=== PATIENT | female | born 1980 | race Caucasian/White ===

== ENCOUNTER 2022-06-24 08:34 | Emergency (ER) | payer OTHER ==
[2022-06-24] MEDS ORDERED: TORAdol 30 mg Injection IM ONE (08:51)
[2022-06-24] MEDS ORDERED: TORAdol 30 mg Injection ONE (09:01)
--- NOTE | 2022-06-24 09:02 | ERPHSYRPT ---
- History of Present Illness Time Seen by Provider: 06/24/22 08:37 Source: patient Exam Limitations: no limitations Patient Subjective Stated Complaint: left shoulder pain since 1pm yesterday Physician History: This's a 41 yr old known diabetic type 2 in Insulin, presenting to ED with left shoulder pain that started yesterday around 1 pm when pt. was shopping. - Reports left shoulder pain initially noticed on monday after lifting a 100lb box that improved. - Laft shoulder pain- 10/10, increases with lifting arm, decreases to 0/10 with not moving the arm, non radiating, has some associated tingling, no numbness. -non radiating - denies prior surgeries to arm/injuries. - denies chest pain/SOB/fever - LMP- on control, lst menstrual period unknown. - has taken iburprofen and applied ice hot with some relief. Occurred: yesterday Method of Injury: other (lefted a 100 lb box) Quality: intermittent Severity of Pain-Max: severe Extremities Pain Location: shoulder: left, arm: left Modifying Factors: Improves With: movement, pain medication, rest Associated Symptoms: none Allergies/Adverse Reactions: phenobarbital Allergy (Verified 06/24/22 08:46) Home Medications: Ammonium Lactate [Ammonium Lactate 12%] 226 gm TP DAILY 06/24/22 [History] Ertugliflozin Pidolate [Steglatro] 5 mg PO DAILY 06/24/22 [History] Gabapentin [Neurontin ] 300 mg PO TID 06/24/22 [History] Insulin Lispro [Admelog Solostar] 7 units ACHS 06/24/22 [History] Lisinopril 20 mg [Zestril 20 MG] 20 mg PO DAILY 06/24/22 [History] PANTOPRAZOLE 40 mg Tablet [Protonix 40MG Tablet] 40 mg PO DAILY 06/24/22 [History] Pen Needle, Diabetic [Bd Ultra-Fine Pen Needle] 1 ea DAILY 06/24/22 [History] Semaglutide [Ozempic] 0.25 mg SQ UD 06/24/22 [History] terbinafine HCL [Terbinafine HCl] 250 mg PO DAILY 06/24/22 [History] - Review of Systems Constitutional: No Symptoms, No Fever, No Chills, No Fatigue, No Malaise, No Weight Loss Eyes: No Discharge, No Eye Pain, No Vision Changes, No Double Vision Ears, Nose, & Throat: No Ear Pain, No Ear Discharge, No Hearing Changes, No Nose Congestion, No Nose Discharge, No Epistaxis, No Painful Swallowing Respiratory: No Cough, No Dyspnea on Exertion (ESPINO) Cardiac: No Chest Pain, No Palpitations, No Syncope, No Orthopnea, No PND Abdominal/Gastrointestinal: No Abdominal Pain, No Nausea, No Vomiting, No Diarrhea, No Appetite Changes Genitourinary Symptoms: No Dysuria, No Frequency, No Hematuria, No Hesitancy Musculoskeletal: Joint Pain, No Fall Skin: No No Symptoms, No Cellulitis, No Decubiti, No Rash Neurological: No Dizziness, No Focal Weakness, No Gait Changes, No Headache, No Irritability, No Lethargy, No Parasthesia, No Seizure Psychological: No No Symptoms Endocrine: No No Symptoms Immunological/Allergic: No No Symptoms All Other Systems: Reviewed and Negative - Past Medical History Pertinent Past Medical History: Yes Endocrine Medical History: Diabetes Type II - Past Surgical History Past Surgical History: Yes Gastrointestinal: Cholecystectomy, Hernia Repair Female Surgical History: Section - Social History Drug Use: none - Female History Hx Now: No - Nursing Vital Signs Nursing Vital Signs: Initial Vital Signs Pulse Rate 72 06/24/22 09:07 Respiratory Rate 16 06/24/22 09:07 Blood Pressure 170/88 06/24/22 09:07 O2 Sat by Pulse Oximetry 98 06/24/22 09:07 Pain Scale Pain Intensity 5 - Physical Exam General Appearance: no apparent distress, obese Eyes, Ears, Nose, Throat Exam: normal ENT inspection, TMs normal, pharynx normal Neck Exam: normal inspection, non-tender, supple, full range of motion, No carotid bruit, No JVD Cardiovascular/Respiratory Exam: chest non-tender, normal breath sounds, regular rate/rhythm, heart sounds normal, normal peripheral pulses, No crepitus Abdominal Exam: non-tender, soft, no organomegaly Back Exam: normal inspection, normal range of motion, No CVA tenderness Shoulder Exam: normal inspection, no evidence of injury, bone tenderness, limited ROM, pain, No deformity, No ecchymosis, No swelling Elbow/Forearm Exam: normal inspection, non-tender, no evidence of injury, normal ROM Wrist Exam: normal inspection, non-tender, no evidence of injury, normal ROM, soft tissue tenderness Hand Exam: normal inspection, non-tender, no evidence of injury, normal ROM DTR - Upper Extremity Exam: bicep (R): 4+, bicep (L): 4+, tricep (R): 4+, tricep (L): 4+ Neuro/Tendon Exam: normal sensation, normal motor functions, no evidence tendon injury, No sensory deficit Mental Status Exam: alert, oriented x 3, cooperative Skin Exam: normal color, warm, dry, No rash SpO2 Interpretation: normal O2 Delivery: Room Air - Course EKG Interpreted by Me: RATE, Sinus Rhythm, NORMAL AXIS, NORMAL INTERVALS, NORMAL QRS, NORMAL ST-T Rhythm Strip: Rate, Normal Sinus Rhythm Ordered Tests: Active Orders 24 hr Category Date Time Status Cold Application STAT Care 06/24/22 08:51 Active HUMERUS Stat Exams 06/24/22 08:51 Completed SHOULDER Stat Exams 06/24/22 08:51 Completed CK-Creatinine Phosphokinase Stat Lab 06/24/22 09:28 Completed TROPONIN Q4H Lab 06/24/22 09:28 Completed TROPONIN Q4H Lab 06/24/22 13:00 Ordered TROPONIN Q4H Lab 06/24/22 17:00 Ordered TROPONIN Q4H Lab 06/24/22 21:00 Ordered Medication Summary Discontinued Medications Generic Name Dose Route Start Last Admin Trade Name Freq PRN Reason Stop Dose Admin Etomidate 20 mg 06/24/22 10:50 06/24/22 10:55 Etomidate 20 Mg/10 Ml Amp IV 06/24/22 10:51 Not Given ONCE ONE Ketorolac Tromethamine 30 mg 06/24/22 08:51 06/24/22 09:02 Ketorolac Tromethamine 30 Mg/Ml Inj IM 06/24/22 08:52 30 mg STAT ONE Administration Ketorolac Tromethamine Confirm 06/24/22 09:01 Ketorolac Tromethamine 30 Mg/Ml Inj Administered 06/24/22 09:02 Dose 30 mg .ROUTE .STK-MED ONE Lab/Rad Data: Laboratory Results 06/24/22 Range/Units 09:28 Creatine Kinase 154 H (30-135) U/L Troponin I < 0.012 (0.000-0.034) ng/mL - Progress Progress: improved Progress Note: 06/24/22 09:07 Outside notes reviewed: Clinic notes02/16/21- holter monitor done for hernia surgery shows sinus rhythm with a 2hr episode of A.fibb Independent historians interviewed: Patient Lab tests ordered and reviewed by me for medical decision making. See results in this note. Tests ordered and independently interpreted by me X-rays - .Is independently reviewed by me and agreeing with radiology over read shows left humeral head subluxation inferiorly and no prior x-rays for comparison ED course: Initially EKG was obtained, labs ordered along with imaging, ice pack applied to affected area parenteral drugs given: 30mg IM Toradol Comorbid conditions increasing risks:DM type 2 on insulin, obesity DDX considered but not restriced to fracture of long bone, tendonitis, bursitis, ACS Final Diagnosis: left Shoulder subluxation 06/24/22 10:53 Risks of Complications, morbidity, and mortality is: Moderate due to: Need for minor surgery with risk factors Treatment limited by social determinants Low due to:low literacy rate Healthy patient with limited co-morbidities. Disposition: Troponin- WNl, no EKG changes, CPK mildly elevated. ruled out ACS, fracture, dislocation .Attempted to do conscious sedation in order to reduce the left shoulder subluxation . it is unknown if this is acute or chronic orders were placed for etomidate and discussed conscious sedation with the patient including risks benefits and complications -patient reported that there is no one to drive her back home hence decision was made to abandon the procedure -patient will be placed in an arm sling and advised close follow-up with [facility] for further management of the subluxation -patient was advised to apply ice packs for at least 10 to 15 minutes 3 times a day alternate Tylenol with Motrin as needed for pain can try topical rubs and close follow-up with [facility] -patient had no further questions 06/24/22 11:01 - Departure Departure Disposition: Home Clinical Impression: Shoulder subluxation, left Condition: Stable Critical Care Time: No Referrals: JUAN MANUEL CHINO MD [Primary Care Provider] - Follow up/PCP as directed Additional Instructions: Discharge/Care Plan NIRAV TRUJILLO was seen on 06/24/22 in the Emergency Room. The patient was counseled regarding Diagnosis,Lab results, Imaging studies, need for follow up and when to return to the Emergency Room. Prescriptions given:none Discharge Note I have spoken with the patient and/or caregivers. I have explained the patient's condition, diagnosis and treatment plan based on the information available to me at this time. I have answered the patient's and/or caregiver's questions and addressed any concerns. The patient and/or caregivers have as good understanding of the patient's diagnosis, condition and treatment plan as can be expected at this point. The vital signs have been stable. The patient's condition is stable and appropriate for discharge from the emergency department. The patient will pursue further outpatient evaluation with the primary care physician or other designated or consulting physician as outlined in the discharge instructions. The patient and/or caregivers are agreeable to this plan of care and follow-up instructions have been explained in detail. The patient and/or caregivers have received these instruction. The patient/and or caregivers are aware that any significant change in condition or worsening of symptoms should prompt an immediate return to this or the closest emergency department or call 911.
--- NOTE | 2022-06-24 09:26 | XRAY ---
Indication: Pain. No known injury. Comparison: None 2 view left humerus demonstrates humeral head subluxation inferiorly. No other bony, articular, or soft tissue abnormalities.
--- NOTE | 2022-06-24 09:26 | XRAY ---
Indication: Pain. No known injury. Comparison: None 3 view left shoulder demonstrates humeral head subluxation inferiorly. No other bony, articular, or soft tissue abnormalities.
[2022-06-24 09:54] LABS: CK-Creatinine Phosphokinase 154 U/L (30-135); TROPONIN < 0.012 ng/mL (0.000-0.034)
[2022-06-24] MEDS ORDERED: Amidate 20 MG/10 ML IV ONE (10:50)
[2022-06-24 10:57] VITALS: BP 134/71; PULSE 84; O2SAT 93
== END 2022-06-24 11:54 | disposition home or self-care (01) ==
LOC: ED 08:34
DX: S43.032A Inferior subluxation of left humerus, initial encounter (principal); X50.0XXA Overexertion from strenuous movement or load, initial encounter; M25.512 Pain in left shoulder; E11.9 Type 2 diabetes mellitus without complications; Z79.4 Long term (current) use of insulin; Z79.85 Long-term (current) use of injectable non-insulin antidiabetic drugs; Z79.899 Other long term (current) drug therapy
CPT/HCPCS: 36415; 73030; 73060; 82550; 84484; 96372; 99284; J1885

== ENCOUNTER 2023-06-15 09:56 | Observation (INO) | payer OTHER ==
[2023-06-15] MEDS ORDERED: Sodium Chloride 0.9% 1000 ML 1,000 ML ONE (10:43)
[2023-06-15] MEDS: Sodium Chloride 0.9% 1000 ML 1,000 ML IV STA (10:45)
[2023-06-15] MEDS: CARDIZEM DRIP 100 MG/100 ML D5W 100 ML IV PRN (10:47)
[2023-06-15] MEDS: Cardizem IV 50 MG/10 ML IV ONE (10:47)
[2023-06-15 11:11] LABS: Absolute Neutrophil Ct (ANC) 5.79 x10^3/uL (1.4-6.9); BASOPHIL % 0.4 % (0.0-0.4); Basophil (Absolute #) 0.03 x10^3/uL (0-0.4); Eosinophil % 0.7 % (0.00-5.0); Eosinophil (Absolute #) 0.06 x10^3/uL (0-0.5); Hematocrit 51.3 % (35-47); Hemoglobin 15.9 g/dL (12.0-16.0); IMMATURE GRAN # 0.02 x10^3u/L (0.00-0.03); IMMATURE GRAN % 0.2 % (0.00-0.4); Lymphocyte (Absolute #) 1.45 x10^3/uL (1.0-4.6); Lymphocytes % 18.1 % (24.0-44.0); Mean Cell Volume 90.5 fL (78-100); Mean Platelet Volume 11.3 fL (7.5-11.0); Monocyte (Absolute #) 0.67 x10^3/uL (0.0-1.3); Monocytes % 8.4 % (0.0-12.0); Neutrophil % 72.2 % (36.0-66.0); Platelet Count 294 x10^3/uL (150-450); Red Blood Count 5.67 x10^6/uL (4.1-5.4); Red Cell Distribution Width 15.2 % (11.5-14.0)
[2023-06-15 11:24] LABS: HCG SERUM TEST NEGATIVE (NEGATIVE)
[2023-06-15 11:42] LABS: Appearance Cloudy (Clear); Bacteria Few /HPF (None Seen); Bilirubin Negative (Negative); Blood Small (Negative); Epithelial Cells Few /HPF (None Seen); Glucose, Urine 500 mg/dL (Negative); Hyaline Casts NONE SEEN /LPF (0-2); Ketones Trace (Negative); Leukocyte Esterase Small (Negative); Nitrite Negative (Negative); Protein,Urine Dip 100 (Negative); RBC 0-2 /HPF (0-5); Specific Gravity <=1.005 (1.005-1.030); Urobilinogen 0.2 mg/dL (0.2)
[2023-06-15 11:43] LABS: ALBUMIN 4.7 g/dL (3.5-5.0); BILIRUBIN,TOTAL 0.5 mg/dL (0.2-1.3); Calcium 9.1 mg/dL (8.4-10.2); Creatinine 1 0.54 mg/dL (0.52-1.04); EST GLOMERULAR FILTRATION RATE 118.6 ML/MIN; PROCALCITONIN 0.053 ng/mL (0.030-0.080); Potassium 3.5 mmol/L (3.5-5.1); Total Protein 8.9 g/dL (6.3-8.2)
[2023-06-15 11:43] LABS: Budding Yeast Moderate /HPF (None Seen); Hyphae Yeast Few /HPF (None Seen)
[2023-06-15 11:44] LABS: ADD URINE CULTURE? YES (NO)
[2023-06-15 11:49] LABS: INFLUENZA B NEGATIVE (NEGATIVE); RESPIRATORY SYNCTIAL VIRUS NEGATIVE (NEGATIVE); SARS-CoV-2 Xpert Express NEGATIVE (NEGATIVE)
--- NOTE | 2023-06-15 11:49 | XRAY ---
Indication: Short of breath. Comparison: None Portable chest demonstrates cardiomegaly, central vascular congestion, mild pulmonary edema, and tiny bibasilar effusions favoring cardiac decompensation/CHF. Superimposed pneumonia not completely excluded. Bony thorax intact.
[2023-06-15 11:51] LABS: INFLUENZA A POSITIVE (NEGATIVE)
[2023-06-15] MEDS ORDERED: Tamiflu 75MG Capsule PO ONE (12:09)
[2023-06-15] MEDS ORDERED: ROCEPHIN 2 Gm-D5w 50ML BAG** 2 G/50 ML IVPB IV ONE (12:09)
--- NOTE | 2023-06-15 12:09 | ERPHSYRPT ---
- History of Present Illness Time Seen by Provider: 06/15/23 10:30 Source: patient Exam Limitations: no limitations Patient Subjective Stated Complaint: C/O SOB that Started on Monday. Patient states she went to [facility] on that day and was prescribed an albuterol inh aler, told she was negative for flu and COVID and then sent home. Patient went back to work last night and is increasingly SOB today. States children at home have influenza A. Triage Nursing Assessment: Patient ambulated back to ER; refused W/C. She is SOB with exertion. She is anxious and tearful. Face is flushed. Lungs clear with diminished lower lobes. Dry, non-productive cough present. RUSSELL LUU. Physician History: 42-year-old morbidly obese female with history of hypertension, diabetes mellitus, anxiety/depression presented in the ER with 4 days history of cough congestion, body aches. Patient was seen outpatient few days ago with a neg ative flu and COVID although patient has a positive contact with influenza A. Patient reports progressively increasing minimal productive cough and shortness of breath initially with activity and now feeling short of breath even resting. Patient reports pressure all over in the chest, body aches, mild headache. Patient found presentation has a heart rate in 130s and 140s with EKG showing A- fib RVR. Patient has no history of atrial fibrillation and is not anticoagulated. Allergies/Adverse Reactions: phenobarbital Allergy (Verified 06/15/23 09:57) Home Medications: Albuterol Sulfate Mdi [ALBUTEROL/Proair Hfa MDI] 2 puff PO Q4-6HPRN PRN 06/15/23 [History] Cholecalciferol (Vitamin D3) [Vitamin D3] 1 cap PO 2XW 06/15/23 [History] Ferrous Sulfate 325 mg [Feosol 325 mg] 1 tab PO BID 06/15/23 [History] Gabapentin [Neurontin ] 1 cap PO TID 06/15/23 [History] Insulin Glargine [Lantus Insulin] See Rx Instructions .ROUTE .COMPLEX 06/15/23 [History] Liraglutide [Victoza 2-Dajuan] 1.2 mg SQ DAILY 06/15/23 [History] Norethindrone Acetate 1 tab PO DAILY 06/15/23 [History] Pioglitazone HCl [Actos] 1 tab PO DAILY 06/15/23 [History] lisinopriL [Zestril] 1 tab PO DAILY 06/15/23 [History] Hx Tetanus, Diphtheria Vaccination/Date Given: Yes Hx Influenza Vaccination/Date Given: No Hx Pneumococcal Vaccination/Date Given: No Immunizations Up to Date: Yes Travel Risk - International Travel Have you traveled outside of the country in past 3 weeks: No - Coronavirus Screening Are you exhibiting any of the following symptoms?: Yes Symptoms: Fever, Cough: New Onset, Shortness of Breath Close contact with a COVID-19 positive Pt in past 14-21 Days: No - Vaccine Status Have you recieved a Covid-19 vaccination: No - Review of Systems Constitutional: Fatigue, Weakness Eyes: No Symptoms Ears, Nose, & Throat: No Symptoms Respiratory: Cough, Dyspnea, Dyspnea on Exertion (ESPINO) Cardiac: Chest Pain, Edema Abdominal/Gastrointestinal: No Symptoms Genitourinary Symptoms: No Symptoms Musculoskeletal: Myalgias Skin: No Symptoms Neurological: Headache Psychological: No Symptoms Hematologic/Lymphatic: No Symptoms Immunological/Allergic: No Symptoms - Past Medical History Pertinent Past Medical History: Yes Endocrine Medical History: Diabetes Type II GI Medical History: Gallbladder Disease, Hernia - Past Surgical History Past Surgical History: Yes Gastrointestinal: Cholecystectomy, Hernia Repair Female Surgical History: Section - Social History Smoking Status: Never smoker Exposure to second hand smoke: No Drug Use: none Patient Lives Alone: No - Female History Hx Last Menstrual Period: Irregular; April 2023 Hx Now: (unk) - Nursing Vital Signs Nursing Vital Signs: Initial Vital Signs Blood Pressure 180/125 06/15/23 09:56 O2 Sat by Pulse Oximetry 97 06/15/23 09:56 Pain Scale Pain Intensity 0 - Physical Exam General Appearance: no apparent distress Eye Exam: PERRL/EOMI Ears, Nose, Throat Exam: hearing grossly normal Neck Exam: normal inspection, non-tender, supple, full range of motion Respiratory Exam: diminished breath sounds, crackles/rales Abdominal/Gastrointestinal Exam: soft, normal bowel sounds, No tenderness Extremity Exam: non-tender, normal range of motion Neurologic Exam: alert, oriented x 3, cooperative, play therapist II-XII nml as tested Skin Exam: normal color SpO2 Interpretation: normal SpO2: 92 O2 Delivery: Room Air - Course EKG Interpreted by Me: RATE (131), A-fib, NORMAL AXIS, NORMAL INTERVALS, Q-wave, Non-specific ST Changes Ordered Tests: Active Orders 24 hr Category Date Time Status Engineering Test Mechanic STAT Care 06/15/23 10:31 Active EKG-ER Only STAT Care 06/15/23 10:31 Active IV Insertion STAT Care 06/15/23 10:31 Active CHEST 1 VIEW (PORTABLE) Stat Exams 06/15/23 10:31 Completed CHEST WITH CONTRAST [CT] Stat Exams 06/15/23 11:40 Completed BLOOD CULTURE Stat Lab 06/15/23 10:32 Received CBC W DIFF Stat Lab 06/15/23 10:52 Completed CK-Creatinine Phosphokinase Stat Lab 06/15/23 10:52 Completed CMP Stat Lab 06/15/23 10:52 Completed CULTURE,URINE Stat Lab 06/15/23 10:32 Received D-DIMER QUANTITATIVE Stat Lab 06/15/23 10:52 Completed HCG QUALITATIVE, SERUM Stat Lab 06/15/23 10:52 Completed Lactic Acid Stat Lab 06/15/23 10:32 Completed MAGNESIUM Stat Lab 06/15/23 10:52 Completed NT PRO BNPII Stat Lab 06/15/23 10:52 Completed PROCALCITONIN Stat Lab 06/15/23 10:52 Completed TROPONIN Q4H Lab 06/15/23 10:52 Completed TROPONIN Q4H Lab 06/15/23 14:45 Ordered TROPONIN Q4H Lab 06/15/23 18:45 Ordered UA W/RFX UR CULTURE Stat Lab 06/15/23 10:32 Completed Transfer Order Routine Transfer 06/15/23 Ordered Medication Summary Generic Name Dose Route Start Last Admin Trade Name Freq PRN Reason Stop Dose Admin Diltiazem HCl 100 mls @ 5 mls/hr 06/15/23 10:32 06/15/23 11:46 Cardizem Drip 100 Mg/100 Ml D5w IV 07/15/23 10:31 7.5 mg/hr .Q20H PRN 7.5 mls/hr HEART RATE/ A-FIB Titration Protocol 5 MG/HR Discontinued Medications Generic Name Dose Route Start Last Admin Trade Name Freq PRN Reason Stop Dose Admin Diltiazem HCl 10 mg 06/15/23 10:32 06/15/23 10:47 Diltiazem Hcl Iv 5 Mg/Ml Vial IV 06/15/23 10:33 10 mg STAT ONE Administration Sodium Chloride 1,000 mls @ 999 mls/hr 06/15/23 10:31 06/15/23 11:47 Sodium Chloride 0.9% 1000 Ml IV 06/15/23 11:31 Infused .Q1H1M STA Infusion Sodium Chloride Confirm 06/15/23 10:43 Sodium Chloride 0.9% 1000 Ml Administered 06/15/23 10:44 Dose 1,000 mls @ ud .ROUTE .STK-MED ONE Ceftriaxone Sodium/Dextrose 2 g in 50 mls @ 100 mls/hr 06/15/23 12:02 06/15/23 12:47 Rocephin 2 Gm-D5w 50ml Bag IV 06/15/23 12:31 Infused STAT STA Infusion Ceftriaxone Sodium/Dextrose Confirm 06/15/23 12:09 Rocephin 2 Gm-D5w 50ml Bag Administered 06/15/23 12:10 Dose 2 g in 50 mls @ ud IV .STK-MED ONE Ondansetron HCl 4 mg 06/15/23 13:19 06/15/23 13:21 Ondansetron Hcl 4 Mg/2 Ml Vial IV 06/15/23 13:20 4 mg STAT ONE Administration Ondansetron HCl Confirm 06/15/23 13:21 Ondansetron Hcl 4 Mg/2 Ml Vial Administered 06/15/23 13:22 Dose 4 mg .ROUTE .STK-MED ONE Oseltamivir Phosphate 75 mg 06/15/23 12:03 06/15/23 12:13 Oseltamivir 75 Mg Cap PO 06/15/23 12:04 75 mg STAT ONE Administration Oseltamivir Phosphate Confirm 06/15/23 12:09 Oseltamivir 75 Mg Cap Administered 06/15/23 12:10 Dose 75 mg PO .STK-MED ONE Lab/Rad Data: Laboratory Result Diagrams 06/15/23 10:52 06/15/23 10:52 Laboratory Results 06/15/23 06/15/23 06/15/23 Range/Units 10:52 10:52 10:52 WBC (4.0-10.5) x10^3/uL RBC (4.1-5.4) x10^6/uL Hgb (12.0-16.0) g/dL Hct (35-47) % MCV (78-100) fL MCH (26-32) pg MCHC (32-36) g/dL RDW (11.5-14.0) % Plt Count (150-450) x10^3/uL MPV (7.5-11.0) fL Gran % (36.0-66.0) % Immature Gran % (Auto) (0.00-0.4) % Nucleat RBC Rel Count (0.00-0.1) % Eos # (Auto) (0-0.5) x10^3/uL Immature Gran # (Auto) (0.00-0.03) x10^3u/L Absolute Lymphs (auto) (1.0-4.6) x10^3/uL Absolute Monos (auto) (0.0-1.3) x10^3/uL Absolute Nucleated RBC (0.00-0.01) x10^3u/L Lymphocytes % (24.0-44.0) % Monocytes % (0.0-12.0) % Eosinophils % (0.00-5.0) % Basophils % (0.0-0.4) % Absolute Granulocytes (1.4-6.9) x10^3/uL Basophils # (0-0.4) x10^3/uL D-Dimer (0.0-0.50) mg/L Sodium (135-145) mmol/L Potassium (3.5-5.1) mmol/L Chloride (98-107) mmol/L Carbon Dioxide (22-30) mmol/L Anion Gap (5-15) MEQ/L BUN (7-17) mg/dL Creatinine (0.52-1.04) mg/dL Estimated GFR ML/MIN Glucose (74-106) mg/dL Lactic Acid (0.4-2.0) Calcium (8.4-10.2) mg/dL Magnesium (1.6-2.3) mg/dL Total Bilirubin (0.2-1.3) mg/dL AST (14-36) U/L ALT (0-35) U/L Alkaline Phosphatase (38-126) U/L Creatine Kinase (30-135) U/L Troponin I < 0.012 (0.000-0.034) ng/mL NT-Pro-B Natriuret Pep (<300) pg/mL Serum Total Protein (6.3-8.2) g/dL Albumin (3.5-5.0) g/dL Procalcitonin (0.030-0.080) ng/mL Serum HCG, Qual NEGATIVE (NEGATIVE) Urine Color (Yellow) Urine Appearance (Clear) Urine pH (4.6-8.0) Ur Specific [place] (1.005-1.030) Urine Protein (Negative) Urine Glucose (UA) (Negative) mg/dL Urine Ketones (Negative) Urine Blood (Negative) Urine Nitrite (Negative) Urine Bilirubin (Negative) Urine Urobilinogen (0.2) mg/dL Ur Leukocyte Esterase (Negative) U Hyaline Cast (Auto) (0-2) /LPF Urine Microscopic RBC (0-5) /HPF Urine Microscopic WBC (0-5) /HPF Ur Epithelial Cells (None Seen) /HPF Urine Bacteria (None Seen) /HPF Ur Yeast w Hyphae (None Seen) /HPF Urine Yeast (Budding) (None Seen) /HPF Urine Culture Reflexed (NO) Influenza Type A Ag POSITIVE A (NEGATIVE) Influenza Type B Ag NEGATIVE (NEGATIVE) RSV (PCR) NEGATIVE (NEGATIVE) SARS-CoV-2 (PCR) NEGATIVE (NEGATIVE) 06/15/23 06/15/23 06/15/23 Range/Units 10:52 10:52 10:52 WBC 8.0 (4.0-10.5) x10^3/uL RBC 5.67 H (4.1-5.4) x10^6/uL Hgb 15.9 (12.0-16.0) g/dL Hct 51.3 H (35-47) % MCV 90.5 (78-100) fL MCH 28.0 (26-32) pg MCHC 31.0 L (32-36) g/dL RDW 15.2 H (11.5-14.0) % Plt Count 294 (150-450) x10^3/uL MPV 11.3 H (7.5-11.0) fL Gran % 72.2 H (36.0-66.0) % Immature Gran % (Auto) 0.2 (0.00-0.4) % Nucleat RBC Rel Count 0.0 (0.00-0.1) % Eos # (Auto) 0.06 (0-0.5) x10^3/uL Immature Gran # (Auto) 0.02 (0.00-0.03) x10^3u/L Absolute Lymphs (auto) 1.45 (1.0-4.6) x10^3/uL Absolute Monos (auto) 0.67 (0.0-1.3) x10^3/uL Absolute Nucleated RBC 0.00 (0.00-0.01) x10^3u/L Lymphocytes % 18.1 L (24.0-44.0) % Monocytes % 8.4 (0.0-12.0) % Eosinophils % 0.7 (0.00-5.0) % Basophils % 0.4 (0.0-0.4) % Absolute Granulocytes 5.79 (1.4-6.9) x10^3/uL Basophils # 0.03 (0-0.4) x10^3/uL D-Dimer 0.84 H* (0.0-0.50) mg/L Sodium 144 (135-145) mmol/L Potassium 3.5 (3.5-5.1) mmol/L Chloride 107 (98-107) mmol/L Carbon Dioxide 24 (22-30) mmol/L Anion Gap 17.0 H (5-15) MEQ/L BUN 12 (7-17) mg/dL Creatinine 0.54 (0.52-1.04) mg/dL Estimated GFR 118.6 ML/MIN Glucose 87 (74-106) mg/dL Lactic Acid (0.4-2.0) Calcium 9.1 (8.4-10.2) mg/dL Magnesium 2.0 (1.6-2.3) mg/dL Total Bilirubin 0.50 (0.2-1.3) mg/dL AST 29 (14-36) U/L ALT 21 (0-35) U/L Alkaline Phosphatase 91 (38-126) U/L Creatine Kinase 234 H (30-135) U/L Troponin I (0.000-0.034) ng/mL NT-Pro-B Natriuret Pep 24.0 (<300) pg/mL Serum Total Protein 8.9 H (6.3-8.2) g/dL Albumin 4.7 (3.5-5.0) g/dL Procalcitonin 0.053 (0.030-0.080) ng/mL Serum HCG, Qual (NEGATIVE) Urine Color (Yellow) Urine Appearance (Clear) Urine pH (4.6-8.0) Ur Specific [place] (1.005-1.030) Urine Protein (Negative) Urine Glucose (UA) (Negative) mg/dL Urine Ketones (Negative) Urine Blood (Negative) Urine Nitrite (Negative) Urine Bilirubin (Negative) Urine Urobilinogen (0.2) mg/dL Ur Leukocyte Esterase (Negative) U Hyaline Cast (Auto) (0-2) /LPF Urine Microscopic RBC (0-5) /HPF Urine Microscopic WBC (0-5) /HPF Ur Epithelial Cells (None Seen) /HPF Urine Bacteria (None Seen) /HPF Ur Yeast w Hyphae (None Seen) /HPF Urine Yeast (Budding) (None Seen) /HPF Urine Culture Reflexed (NO) Influenza Type A Ag (NEGATIVE) Influenza Type B Ag (NEGATIVE) RSV (PCR) (NEGATIVE) SARS-CoV-2 (PCR) (NEGATIVE) 06/15/23 06/15/23 Range/Units 10:32 10:32 WBC (4.0-10.5) x10^3/uL RBC (4.1-5.4) x10^6/uL Hgb (12.0-16.0) g/dL Hct (35-47) % MCV (78-100) fL MCH (26-32) pg MCHC (32-36) g/dL RDW (11.5-14.0) % Plt Count (150-450) x10^3/uL MPV (7.5-11.0) fL Gran % (36.0-66.0) % Immature Gran % (Auto) (0.00-0.4) % Nucleat RBC Rel Count (0.00-0.1) % Eos # (Auto) (0-0.5) x10^3/uL Immature Gran # (Auto) (0.00-0.03) x10^3u/L Absolute Lymphs (auto) (1.0-4.6) x10^3/uL Absolute Monos (auto) (0.0-1.3) x10^3/uL Absolute Nucleated RBC (0.00-0.01) x10^3u/L Lymphocytes % (24.0-44.0) % Monocytes % (0.0-12.0) % Eosinophils % (0.00-5.0) % Basophils % (0.0-0.4) % Absolute Granulocytes (1.4-6.9) x10^3/uL Basophils # (0-0.4) x10^3/uL D-Dimer (0.0-0.50) mg/L Sodium (135-145) mmol/L Potassium (3.5-5.1) mmol/L Chloride (98-107) mmol/L Carbon Dioxide (22-30) mmol/L Anion Gap (5-15) MEQ/L BUN (7-17) mg/dL Creatinine (0.52-1.04) mg/dL Estimated GFR ML/MIN Glucose (74-106) mg/dL Lactic Acid 1.6 (0.4-2.0) Calcium (8.4-10.2) mg/dL Magnesium (1.6-2.3) mg/dL Total Bilirubin (0.2-1.3) mg/dL AST (14-36) U/L ALT (0-35) U/L Alkaline Phosphatase (38-126) U/L Creatine Kinase (30-135) U/L Troponin I (0.000-0.034) ng/mL NT-Pro-B Natriuret Pep (<300) pg/mL Serum Total Protein (6.3-8.2) g/dL Albumin (3.5-5.0) g/dL Procalcitonin (0.030-0.080) ng/mL Serum HCG, Qual (NEGATIVE) Urine Color Yellow (Yellow) Urine Appearance Cloudy A (Clear) Urine pH 6.0 (4.6-8.0) Ur Specific [place] <=1.005 (1.005-1.030) Urine Protein 100 A (Negative) Urine Glucose (UA) 500 A (Negative) mg/dL Urine Ketones Trace A (Negative) Urine Blood Small A (Negative) Urine Nitrite Negative (Negative) Urine Bilirubin Negative (Negative) Urine Urobilinogen 0.2 (0.2) mg/dL Ur Leukocyte Esterase Small A (Negative) U Hyaline Cast (Auto) NONE SEEN (0-2) /LPF Urine Microscopic RBC 0-2 (0-5) /HPF Urine Microscopic WBC 11-20 A (0-5) /HPF Ur Epithelial Cells Few (None Seen) /HPF Urine Bacteria Few A (None Seen) /HPF Ur Yeast w Hyphae Few A (None Seen) /HPF Urine Yeast (Budding) Moderate A (None Seen) /HPF Urine Culture Reflexed YES (NO) Influenza Type A Ag (NEGATIVE) Influenza Type B Ag (NEGATIVE) RSV (PCR) (NEGATIVE) SARS-CoV-2 (PCR) (NEGATIVE) - Progress Progress: re-examined Air Movement: fair Progress Note: 06/15/23 13:44 42-year-old is evaluated for gradually worsening cough and difficulty breathing and a positive exposure to influenza. Patient is tachycardic with new onset A- fib RVR. She is started on Cardizem bolus followed by drip and currently heart rate in 110s. Chest x-ray showed congestion/cardiomegaly with CHF picture, patient BNP is normal. Clinically she does not seems to be in CHF. Moderate extremity of infectious etiology, given small bolus of fluid. Workup showed normal white count, chemistries fairly unremarkable with negative troponins. D-dimers are elevated and CTA is negative for PE or focal consolidation. Normal procalcitonin. Patient does have positive influenza A and started on Tamiflu. Patient urinalysis is consistent with UTI and given a dose of Rocephin. Discussed with Dr. Issa hospitalist on-call, reviewed history, workup and agreed with admission, will leave it up to the hospitalist about starting of anticoagulation. I have reviewed the results of workup with patient and plan of admission which she understands and agrees. Blood Culture(s) Obtained: Yes Antibiotics given: Yes Discussed with : Other Will see patient in: hospital (observation) Counseled pt/family regarding: lab results, diagnosis, rad results Medical Desision Making - Discussion of managment Care discussed with:: hospitalist () Reviewed:: Test results Agreed on:: Treatment plan Will see patient: in hospital - Diagnostic Testing Diagnostic test were ordered, analyzed, and reviewed by me: Yes Radiological Interpretation: Reviewed by me - Risk of complications The pt has a high risk of morbidity or mortality based on: Decision regarding hospitilization or escalation of hosp level of care - Departure Departure Disposition: Observation Clinical Impression: Atrial fibrillation with rapid ventricular response, Acute UTI, Influenza A Condition: Stable Critical Care Time: No Referrals: JUAN MANUEL CHINO MD [Primary Care Provider] - Follow up/PCP as directed
[2023-06-15] MEDS: ROCEPHIN 2 Gm-D5w 50ML BAG** 2 G/50 ML IVPB IV STA (12:11)
[2023-06-15] MEDS: Tamiflu 75MG Capsule PO ONE (12:13)
--- NOTE | 2023-06-15 13:13 | XRAY ---
Indication: Short of breath. Pulmonary embolus. Multiple contiguous axial images obtained through the chest using 80 cc Isovue 370 contrast and PE protocol. Comparison: None Good opacification of the pulmonary arteries to include the lobar and segmental branches. Mild respiration artifact limits evaluation of the more distal lobar and segmental branches. No obvious pulmonary embolus. Heart is enlarged. Aorta is normal in course and caliber. No pathologic mediastinal/hilar lymphadenopathy. Lungs demonstrates minimal scattered patchy airspace disease, left greater than right without effusion. Also lingula and bibasilar subsegmental atelectasis/scarring. Bony thorax intact with minimal degenerative changes throughout the spine. Visualized breasts demonstrates prominent varicosities, right greater than left. Limited upper abdomen demonstrates cholecystectomy. Impression: 1. Respiration artifact limits pulmonary embolus evaluation. No obvious pulmonary embolus. 2. Minimal scattered bilateral patchy airspace disease. 3. Chronic findings including cardiomegaly, atelectasis/scarring, multilevel degenerative, and bilateral breast varicosities.
[2023-06-15] MEDS: Zofran 4 MG/2 ML VIAL IV ONE (13:21)
[2023-06-15] MEDS ORDERED: Zofran 4 MG/2 ML VIAL ONE (13:21)
[2023-06-15] MEDS ORDERED: Zofran 4 MG/2 ML VIAL IV PRN (14:54)
[2023-06-15] MEDS ORDERED: TYLENOL 325 MG PO PRN (14:54)
[2023-06-15] MEDS ORDERED: HUMALOG SQ PRN (14:54)
--- NOTE | 2023-06-15 15:04 | PCM.HP ---
History of Present Illness - Chief Complaint Chief Complaint: sob/AFIB RVR Date: 06/15/23 History of Present Illness: is a 42 year old female Ms. Vanegas is a 42 year old female with a pmhx of HTN, DMII, and morbid obestity who presented to ED 06/15/23 with complaints of progressive shortness of breath, productive cough with green sputum, and body days. Onset of symptoms was approximately four days ago. She was seen outpatient as she has had sick contacts with influenza A., but tested negative at that time. She reports that symptoms got worse last evening where she was having a hard time catching her breath with chest pressure which prompted her to report to the emergency room today. In ED, patient was afebrile, hypertensive, tachypneic, and tachycardic with HR measured at 143. Chest CT demonstrates scattered bilateral patchy airspace disease. Negative for PE. EKG interpreted by ED physician showing RATE (131), A- fib, NORMAL AXIS, NORMAL INTERVALS, Q-wave, Non-specific ST Changes. Lab finding remarkable for elevated Ddimer at 0.84 (CTA negative PE), CK 234. UA with leuks/yeast, Influenza A positive. Patient given rocephin, Tamiflu, fluid bolus, cardizem bolus, and started on cardizem drip. - Review of Systems Constitutional: Weakness Eyes: No Symptoms Ears, Nose, & Throat: Nose Congestion Respiratory: Cough, Short Of Breath Cardiac: No Symptoms Abdominal/Gastrointestinal: Nausea Genitourinary Symptoms: Vaginal Itching Musculoskeletal: No Symptoms Skin: No Symptoms Neurological: No Symptoms Psychological: No Symptoms Endocrine: No Symptoms Hematologic/Lymphatic: No Symptoms Immunological/Allergic: No Symptoms Medications & Allergies Home Medications: Home Medication List Albuterol Sulfate Mdi [ALBUTEROL/Proair Hfa MDI] 2 puff PO Q4HPRN PRN 06/15/23 [History Confirmed 06/15/23] Ammonium Lactate [Ammonium Lactate 12%] 1 gm TP BID 06/15/23 [History Confirmed 06/15/23] Benzonatate 200 mg PO TIDPRN PRN 06/15/23 [History Confirmed 06/15/23] Cholecalciferol (Vitamin D3) [Vitamin D3] 50 mcg PO UD 06/15/23 [History Confi rmed 06/15/23] Ferrous Sulfate 325 mg [Feosol 325 mg] 325 mg PO BID 06/15/23 [History Confirmed 06/15/23] Gabapentin [Neurontin ] 300 mg PO TID 06/15/23 [History Confirmed 06/15/23] Insulin Glargine [Lantus Insulin] 70 units SQ HS 06/15/23 [History Confirmed 06/15/23] Insulin Lispro [Humalog] 0 unit SQ UD 06/15/23 [History Confirmed 06/15/23] Liraglutide [Victoza 2-Dajuan] 1.2 mg SQ DAILY 06/15/23 [History Confirmed 06/15/23] Norethindrone Acetate 5 mg PO DAILY 06/15/23 [History Confirmed 06/15/23] PANTOPRAZOLE 40 mg Tablet [Protonix 40MG Tablet] 40 mg PO DAILY 06/15/23 [History Confirmed 06/15/23] Pioglitazone HCl [Actos] 45 mg PO DAILY 06/15/23 [History Confirmed 06/15/23] lisinopriL [Zestril] 2.5 mg PO DAILY 06/15/23 [History Confirmed 06/15/23] Allergies/Adverse Reactions: Allergies Allergy/AdvReac Type Severity Reaction Status Date / Time phenobarbital Allergy Verified 06/15/23 09:57 - Past Medical History Past Medical History: Yes Endocrine Medical History: Diabetes Type II GI Medical History: Gallbladder Disease, Hernia - Female History Hx Last Menstrual Period: Irregular; April 2023 Are you now?: (unk) - Past Surgical History Past Surgical History: Yes GI Surgical History: Cholecystectomy, Hernia Repair Female Surgical History: Section - Social History Smoking Status: Never smoker Exposure to second hand smoke: No Alcohol: None Drug Use: none - Physical Exam Vital Signs: Vital Signs - 24 hr Temp Pulse Resp BP BP Pulse Ox 06/15/23 14:00 95 H 26 H 127/87 06/15/23 13:59 99 H 29 H 123/81 06/15/23 13:58 99 H 33 H 90 L 06/15/23 13:47 92 L 06/15/23 13:47 98 H 26 H 127/87 06/15/23 13:30 127/82 06/15/23 13:16 100 H 28 H 143/102 91 L 06/15/23 13:00 135 H 26 H 121/97 94 L 06/15/23 12:59 133 H 28 H 134/109 95 06/15/23 12:58 145 H 93 L 06/15/23 12:47 97 H 20 143/102 06/15/23 12:30 132/79 06/15/23 12:16 122 H 119/96 06/15/23 12:00 122 H 27 H 123/91 93 L 06/15/23 11:45 131 H 36 H 126/93 93 L 06/15/23 11:44 114 H 38 H 92 L 06/15/23 11:40 124 H 38 H 92 L 06/15/23 11:34 130 H 39 H 91 L 06/15/23 11:15 149/93 06/15/23 11:00 132 H 36 H 139/97 91 L 06/15/23 10:47 135 H 36 H 149/88 06/15/23 10:46 110 H 38 H 149/88 93 L 06/15/23 10:31 152 H 42 H 156/119 93 L 06/15/23 10:00 134 H 43 H 170/117 06/15/23 09:59 98.4 F 73 26 H 180/125 97 06/15/23 09:56 180/125 97 General Appearance: no apparent distress Neurologic Exam: alert, oriented x 3, cooperative Eye Exam: PERRL/EOMI Ears, Nose, Throat Exam: normal ENT inspection Neck Exam: normal inspection Respiratory Exam: diminished breath sounds Cardiovascular Exam: regular rate/rhythm, normal heart sounds Gastrointestinal/Abdomen Exam: soft, normal bowel sounds Pelvic Exam: not done Rectal Exam: deferred Back Exam: normal inspection Extremity Exam: normal inspection Skin Exam: normal color Results - Labs Lab/Micro Results: Lab Results-Last 24 Hours 06/15/23 06/15/23 06/15/23 Range/Units 10:32 10:32 10:52 WBC 8.0 (4.0-10.5) x10^3/uL RBC 5.67 H (4.1-5.4) x10^6/uL Hgb 15.9 (12.0-16.0) g/dL Hct 51.3 H (35-47) % MCV 90.5 (78-100) fL MCH 28.0 (26-32) pg MCHC 31.0 L (32-36) g/dL RDW 15.2 H (11.5-14.0) % Plt Count 294 (150-450) x10^3/uL MPV 11.3 H (7.5-11.0) fL Gran % 72.2 H (36.0-66.0) % Immature Gran % (Auto) 0.2 (0.00-0.4) % Nucleat RBC Rel Count 0.0 (0.00-0.1) % Eos # (Auto) 0.06 (0-0.5) x10^3/uL Immature Gran # (Auto) 0.02 (0.00-0.03) x10^3u/L Absolute Lymphs (auto) 1.45 (1.0-4.6) x10^3/uL Absolute Monos (auto) 0.67 (0.0-1.3) x10^3/uL Absolute Nucleated RBC 0.00 (0.00-0.01) x10^3u/L Lymphocytes % 18.1 L (24.0-44.0) % Monocytes % 8.4 (0.0-12.0) % Eosinophils % 0.7 (0.00-5.0) % Basophils % 0.4 (0.0-0.4) % Absolute Granulocytes 5.79 (1.4-6.9) x10^3/uL Basophils # 0.03 (0-0.4) x10^3/uL D-Dimer (0.0-0.50) mg/L Sodium (135-145) mmol/L Potassium (3.5-5.1) mmol/L Chloride (98-107) mmol/L Carbon Dioxide (22-30) mmol/L Anion Gap (5-15) MEQ/L BUN (7-17) mg/dL Creatinine (0.52-1.04) mg/dL Estimated GFR ML/MIN Glucose (74-106) mg/dL Lactic Acid 1.6 (0.4-2.0) Calcium (8.4-10.2) mg/dL Magnesium (1.6-2.3) mg/dL Total Bilirubin (0.2-1.3) mg/dL AST (14-36) U/L ALT (0-35) U/L Alkaline Phosphatase (38-126) U/L Creatine Kinase (30-135) U/L Troponin I (0.000-0.034) ng/mL NT-Pro-B Natriuret Pep (<300) pg/mL Serum Total Protein (6.3-8.2) g/dL Albumin (3.5-5.0) g/dL Procalcitonin (0.030-0.080) ng/mL Serum HCG, Qual (NEGATIVE) Urine Color Yellow (Yellow) Urine Appearance Cloudy A (Clear) Urine pH 6.0 (4.6-8.0) Ur Specific [place] <=1.005 (1.005-1.030) Urine Protein 100 A (Negative) Urine Glucose (UA) 500 A (Negative) mg/dL Urine Ketones Trace A (Negative) Urine Blood Small A (Negative) Urine Nitrite Negative (Negative) Urine Bilirubin Negative (Negative) Urine Urobilinogen 0.2 (0.2) mg/dL Ur Leukocyte Esterase Small A (Negative) U Hyaline Cast (Auto) NONE SEEN (0-2) /LPF Urine Microscopic RBC 0-2 (0-5) /HPF Urine Microscopic WBC 11-20 A (0-5) /HPF Ur Epithelial Cells Few (None Seen) /HPF Urine Bacteria Few A (None Seen) /HPF Ur Yeast w Hyphae Few A (None Seen) /HPF Urine Yeast (Budding) Moderate A (None Seen) /HPF Urine Culture Reflexed YES (NO) Influenza Type A Ag (NEGATIVE) Influenza Type B Ag (NEGATIVE) RSV (PCR) (NEGATIVE) SARS-CoV-2 (PCR) (NEGATIVE) 06/15/23 06/15/23 06/15/23 Range/Units 10:52 10:52 10:52 WBC (4.0-10.5) x10^3/uL RBC (4.1-5.4) x10^6/uL Hgb (12.0-16.0) g/dL Hct (35-47) % MCV (78-100) fL MCH (26-32) pg MCHC (32-36) g/dL RDW (11.5-14.0) % Plt Count (150-450) x10^3/uL MPV (7.5-11.0) fL Gran % (36.0-66.0) % Immature Gran % (Auto) (0.00-0.4) % Nucleat RBC Rel Count (0.00-0.1) % Eos # (Auto) (0-0.5) x10^3/uL Immature Gran # (Auto) (0.00-0.03) x10^3u/L Absolute Lymphs (auto) (1.0-4.6) x10^3/uL Absolute Monos (auto) (0.0-1.3) x10^3/uL Absolute Nucleated RBC (0.00-0.01) x10^3u/L Lymphocytes % (24.0-44.0) % Monocytes % (0.0-12.0) % Eosinophils % (0.00-5.0) % Basophils % (0.0-0.4) % Absolute Granulocytes (1.4-6.9) x10^3/uL Basophils # (0-0.4) x10^3/uL D-Dimer 0.84 H* (0.0-0.50) mg/L Sodium 144 (135-145) mmol/L Potassium 3.5 (3.5-5.1) mmol/L Chloride 107 (98-107) mmol/L Carbon Dioxide 24 (22-30) mmol/L Anion Gap 17.0 H (5-15) MEQ/L BUN 12 (7-17) mg/dL Creatinine 0.54 (0.52-1.04) mg/dL Estimated GFR 118.6 ML/MIN Glucose 87 (74-106) mg/dL Lactic Acid (0.4-2.0) Calcium 9.1 (8.4-10.2) mg/dL Magnesium 2.0 (1.6-2.3) mg/dL Total Bilirubin 0.50 (0.2-1.3) mg/dL AST 29 (14-36) U/L ALT 21 (0-35) U/L Alkaline Phosphatase 91 (38-126) U/L Creatine Kinase 234 H (30-135) U/L Troponin I < 0.012 (0.000-0.034) ng/mL NT-Pro-B Natriuret Pep 24.0 (<300) pg/mL Serum Total Protein 8.9 H (6.3-8.2) g/dL Albumin 4.7 (3.5-5.0) g/dL Procalcitonin 0.053 (0.030-0.080) ng/mL Serum HCG, Qual (NEGATIVE) Urine Color (Yellow) Urine Appearance (Clear) Urine pH (4.6-8.0) Ur Specific [place] (1.005-1.030) Urine Protein (Negative) Urine Glucose (UA) (Negative) mg/dL Urine Ketones (Negative) Urine Blood (Negative) Urine Nitrite (Negative) Urine Bilirubin (Negative) Urine Urobilinogen (0.2) mg/dL Ur Leukocyte Esterase (Negative) U Hyaline Cast (Auto) (0-2) /LPF Urine Microscopic RBC (0-5) /HPF Urine Microscopic WBC (0-5) /HPF Ur Epithelial Cells (None Seen) /HPF Urine Bacteria (None Seen) /HPF Ur Yeast w Hyphae (None Seen) /HPF Urine Yeast (Budding) (None Seen) /HPF Urine Culture Reflexed (NO) Influenza Type A Ag (NEGATIVE) Influenza Type B Ag (NEGATIVE) RSV (PCR) (NEGATIVE) SARS-CoV-2 (PCR) (NEGATIVE) 06/15/23 06/15/23 Range/Units 10:52 10:52 WBC (4.0-10.5) x10^3/uL RBC (4.1-5.4) x10^6/uL Hgb (12.0-16.0) g/dL Hct (35-47) % MCV (78-100) fL MCH (26-32) pg MCHC (32-36) g/dL RDW (11.5-14.0) % Plt Count (150-450) x10^3/uL MPV (7.5-11.0) fL Gran % (36.0-66.0) % Immature Gran % (Auto) (0.00-0.4) % Nucleat RBC Rel Count (0.00-0.1) % Eos # (Auto) (0-0.5) x10^3/uL Immature Gran # (Auto) (0.00-0.03) x10^3u/L Absolute Lymphs (auto) (1.0-4.6) x10^3/uL Absolute Monos (auto) (0.0-1.3) x10^3/uL Absolute Nucleated RBC (0.00-0.01) x10^3u/L Lymphocytes % (24.0-44.0) % Monocytes % (0.0-12.0) % Eosinophils % (0.00-5.0) % Basophils % (0.0-0.4) % Absolute Granulocytes (1.4-6.9) x10^3/uL Basophils # (0-0.4) x10^3/uL D-Dimer (0.0-0.50) mg/L Sodium (135-145) mmol/L Potassium (3.5-5.1) mmol/L Chloride (98-107) mmol/L Carbon Dioxide (22-30) mmol/L Anion Gap (5-15) MEQ/L BUN (7-17) mg/dL Creatinine (0.52-1.04) mg/dL Estimated GFR ML/MIN Glucose (74-106) mg/dL Lactic Acid (0.4-2.0) Calcium (8.4-10.2) mg/dL Magnesium (1.6-2.3) mg/dL Total Bilirubin (0.2-1.3) mg/dL AST (14-36) U/L ALT (0-35) U/L Alkaline Phosphatase (38-126) U/L Creatine Kinase (30-135) U/L Troponin I (0.000-0.034) ng/mL NT-Pro-B Natriuret Pep (<300) pg/mL Serum Total Protein (6.3-8.2) g/dL Albumin (3.5-5.0) g/dL Procalcitonin (0.030-0.080) ng/mL Serum HCG, Qual NEGATIVE (NEGATIVE) Urine Color (Yellow) Urine Appearance (Clear) Urine pH (4.6-8.0) Ur Specific [place] (1.005-1.030) Urine Protein (Negative) Urine Glucose (UA) (Negative) mg/dL Urine Ketones (Negative) Urine Blood (Negative) Urine Nitrite (Negative) Urine Bilirubin (Negative) Urine Urobilinogen (0.2) mg/dL Ur Leukocyte Esterase (Negative) U Hyaline Cast (Auto) (0-2) /LPF Urine Microscopic RBC (0-5) /HPF Urine Microscopic WBC (0-5) /HPF Ur Epithelial Cells (None Seen) /HPF Urine Bacteria (None Seen) /HPF Ur Yeast w Hyphae (None Seen) /HPF Urine Yeast (Budding) (None Seen) /HPF Urine Culture Reflexed (NO) Influenza Type A Ag POSITIVE A (NEGATIVE) Influenza Type B Ag NEGATIVE (NEGATIVE) RSV (PCR) NEGATIVE (NEGATIVE) SARS-CoV-2 (PCR) NEGATIVE (NEGATIVE) - Radiology Impressions Radiology Exams & Impressions: Radiology Procedures Category Date Time Status CHEST 1 VIEW (PORTABLE) Stat Exams 06/15/23 10:31 Completed CHEST WITH CONTRAST [CT] Stat Exams 06/15/23 11:40 Completed ECHO W/2D AND DOPPLER [US] Routine Exams 06/15/23 14:54 Ordered - Other Procedures and Tests Respiratory Therapy 06/15/23 14:51 Oxygen Nasal Cannula 2 lpm Respiratory Therapy Consult ONCE 06/15/23 14:54 EKG REPEAT IN AM Assessment/Plan (1) Atrial fibrillation with rapid ventricular response Current Visit: Yes Status: Acute Assessment & Plan: -Dimer elevated, CT negative for PE, with chronic findings cardiomegaly - new onset, not anticoagulated -consult cardiology, appreciate recs-Monitor on Telemetry-Cardizem drip started in ED, will continue per protocol, rate now controlled, NS at 94 -Metoprolol 12.5 started -rate control to target goal HR <85 bpm at rest if symptomatic, goal HR <110 bpm if asymptomatic -ECHO pending -Once HR maintained begin PO/taper drip and discontinue two hours after second oral [id number]: 3-optimize electrolytes for goal of K at 4 and magnesium at 2 -TSH Code(s): I48.91 - UNSPECIFIED ATRIAL FIBRILLATION (2) Acute UTI Current Visit: Yes Status: Acute Assessment & Plan: -mildly suspicious for UTI, will start empiric abx and follow culture, yeast also observed, will give diflucan Code(s): N39.0 - URINARY TRACT INFECTION, SITE NOT SPECIFIED (3) Influenza A Current Visit: Yes Status: Acute Assessment & Plan: -CT chest with no obvious PE, bilateral patchy airspace disease -Supportive care with supplemental oxygen as needed to maintain spo2 >92%, anti- pyretics, anti-emetics -Tamiflu initiated in ED, will continue Code(s): J10.1 - FLU DUE TO OTH IDENT INFLUENZA VIRUS W OTH RESP MANIFEST (4) Diabetes mellitus Current Visit: Yes Status: Acute Assessment & Plan: -A1c -SSI/Lantus -ADA diet Code(s): E11.9 - TYPE 2 DIABETES MELLITUS WITHOUT COMPLICATIONS (5) HTN (hypertension) Current Visit: Yes Status: Acute Assessment & Plan: -Stable, continue home medication Code(s): I10 - ESSENTIAL (PRIMARY) HYPERTENSION
[2023-06-15] MEDS: ROCEPHIN 1 GM / 100 ML NaCl 1 GM/100 ML IVPB IV SCH (15:18)
[2023-06-15] MEDS: Lopressor 25MG Tab PO SCH ×2 (15:43→22:50)
[2023-06-15] MEDS: ENOXAPARIN SODIUM SQ SCH (15:43)
[2023-06-15 15:48] LABS: MAGNESIUM 2.1 mg/dL (1.6-2.3); TSH, 3RD Generation 0.728 mIU/L (0.47-4.68)
[2023-06-15] MEDS ORDERED: VENTOLIN COMMON CANISTER IH PRN (16:11)
[2023-06-15] MEDS: Tamiflu 75MG Capsule PO SCH (22:50)
[2023-06-16 04:54] LABS: Hematocrit 47.8 % (35-47); Hemoglobin 14.6 g/dL (12.0-16.0); Mean Cell Volume 91.7 fL (78-100); Mean Corpuscular Hgb Concent. 30.5 g/dL (32-36); Mean Platelet Volume 10.9 fL (7.5-11.0); Platelet Count 254 x10^3/uL (150-450); Red Blood Count 5.21 x10^6/uL (4.1-5.4); Red Cell Distribution Width 15.4 % (11.5-14.0); White Blood Count 4.1 x10^3/uL (4.0-10.5)
[2023-06-16 05:19] LABS: ALBUMIN 4.1 g/dL (3.5-5.0); ANION GAP 13.6 MEQ/L (5-15); BILIRUBIN,TOTAL 0.5 mg/dL (0.2-1.3); Calcium 8.5 mg/dL (8.4-10.2); Creatinine 1 0.5 mg/dL (0.52-1.04); EST GLOMERULAR FILTRATION RATE 120.8 ML/MIN; Potassium 4.1 mmol/L (3.5-5.1); Total Protein 7.7 g/dL (6.3-8.2)
--- NOTE | 2023-06-16 05:59 | PCM.NOTE ---
Date and Time: 06/16/23 0555 Subjective Assessment: is a 42 year old female Ms. Vanegas is a 42 year old female with a pmhx of HTN, DMII, and morbid obestity who presented to ED 06/15/23 with complaints of progressive shortness of breath, productive cough with green sputum, and body days. Onset of symptoms was approximately four days ago. She was seen outpatient as she has had sick contacts with influenza A., but tested negative at that time. She reports that symptoms got worse last evening where she was having a hard time catching her breath with chest pressure which prompted her to report to the emergency room today. In ED, patient was afebrile, hypertensive, tachypneic, and tachycardic with HR measured at 143. Chest CT demonstrates scattered bilateral patchy airspace disease. Negative for PE. EKG interpreted by ED physician showing RATE (131), A-fib, NORMAL AXIS, NORMAL INTERVALS, Q-wave, Non-specific ST Changes. Lab finding remarkable for elevated Ddimer at 0.84 (CTA negative PE), CK 234. UA with leuks/yeast, Influenza A positive. Patient given rocephin, Tamiflu, fluid bolus, cardizem bolus, and started on cardizem drip. She is admitted with influenza/pneumonia/AFIB RVR/UTI. Current IP treatment with rocephin/azith/tamiflu/metoprolol. Cards consulted with recs for metoprolol 12.5mg BID, lisinopril 2.5mg daily, and xarelto 20mg daily. They will follow with her in 1-2 weeks s/d d/c. Objective Data Vital Signs: Vital Signs - 24 hr Temp Pulse Resp BP BP Pulse Ox 06/16/23 04:00 98.0 F 74 20 103/64 97 06/16/23 03:05 74 24 108/60 97 06/16/23 02:00 80 21 101/71 95 06/16/23 00:40 73 06/16/23 00:00 98.6 F 73 17 101/60 91 L 06/15/23 22:00 98.0 F 75 19 95/61 95 06/15/23 20:41 76 18 94 L 06/15/23 20:29 81 06/15/23 20:00 98.8 F 81 19 128/82 93 L 06/15/23 18:53 78 20 93 L 06/15/23 18:00 81 23 131/82 92 L 06/15/23 17:00 91 H 20 118/73 06/15/23 16:30 92 H 22 130/84 96 06/15/23 16:11 94 L 06/15/23 16:08 90 28 H 94 L 06/15/23 16:00 98.9 F 87 27 H 114/89 93 L 06/15/23 15:45 92 H 23 125/84 93 L 06/15/23 15:44 90 28 H 125/84 06/15/23 15:33 93 H 26 H 118/76 06/15/23 15:07 92 H 26 H 118/76 91 L 06/15/23 15:00 96 H 25 H 118/76 90 L 06/15/23 14:30 93 H 21 120/75 94 L 06/15/23 14:15 96 H 10 L 136/86 90 L 06/15/23 14:00 95 H 26 H 127/87 06/15/23 13:59 99 H 29 H 123/81 06/15/23 13:58 99 H 33 H 90 L 06/15/23 13:47 92 L 06/15/23 13:47 98 H 26 H 127/87 06/15/23 13:30 127/82 06/15/23 13:16 100 H 28 H 143/102 91 L 06/15/23 13:00 135 H 26 H 121/97 94 L 06/15/23 12:59 133 H 28 H 134/109 95 06/15/23 12:58 145 H 93 L 06/15/23 12:47 97 H 20 143/102 06/15/23 12:30 132/79 06/15/23 12:16 122 H 119/96 06/15/23 12:00 122 H 27 H 123/91 93 L 06/15/23 11:45 131 H 36 H 126/93 93 L 06/15/23 11:44 114 H 38 H 92 L 06/15/23 11:40 124 H 38 H 92 L 06/15/23 11:34 130 H 39 H 91 L 06/15/23 11:15 149/93 06/15/23 11:00 132 H 36 H 139/97 91 L 06/15/23 10:47 135 H 36 H 149/88 06/15/23 10:46 110 H 38 H 149/88 93 L 06/15/23 10:31 152 H 42 H 156/119 93 L 06/15/23 10:00 134 H 43 H 170/117 06/15/23 09:59 98.4 F 73 26 H 180/125 97 06/15/23 09:56 180/125 97 Pain Assessment - Last Documented Pain Intensity 0 Intake and Output: Intake & Output 06/13/23 06/14/23 06/15/23 06/16/23 11:59 11:59 11:59 11:59 Intake Total 600 Output Total 400 Balance 200 Weight 155.582 kg 151.7 kg Lab Results: Lab Results-Last 24 Hours 06/15/23 06/15/23 06/15/23 Range/Units 10:32 10:32 10:52 WBC 8.0 (4.0-10.5) x10^3/uL RBC 5.67 H (4.1-5.4) x10^6/uL Hgb 15.9 (12.0-16.0) g/dL Hct 51.3 H (35-47) % MCV 90.5 (78-100) fL MCH 28.0 (26-32) pg MCHC 31.0 L (32-36) g/dL RDW 15.2 H (11.5-14.0) % Plt Count 294 (150-450) x10^3/uL MPV 11.3 H (7.5-11.0) fL Gran % 72.2 H (36.0-66.0) % Immature Gran % (Auto) 0.2 (0.00-0.4) % Nucleat RBC Rel Count 0.0 (0.00-0.1) % Eos # (Auto) 0.06 (0-0.5) x10^3/uL Immature Gran # (Auto) 0.02 (0.00-0.03) x10^3u/L Absolute Lymphs (auto) 1.45 (1.0-4.6) x10^3/uL Absolute Monos (auto) 0.67 (0.0-1.3) x10^3/uL Absolute Nucleated RBC 0.00 (0.00-0.01) x10^3u/L Lymphocytes % 18.1 L (24.0-44.0) % Monocytes % 8.4 (0.0-12.0) % Eosinophils % 0.7 (0.00-5.0) % Basophils % 0.4 (0.0-0.4) % Absolute Granulocytes 5.79 (1.4-6.9) x10^3/uL Basophils # 0.03 (0-0.4) x10^3/uL D-Dimer (0.0-0.50) mg/L Sodium (135-145) mmol/L Potassium (3.5-5.1) mmol/L Chloride (98-107) mmol/L Carbon Dioxide (22-30) mmol/L Anion Gap (5-15) MEQ/L BUN (7-17) mg/dL Creatinine (0.52-1.04) mg/dL Estimated GFR ML/MIN Glucose (74-106) mg/dL POC Glucometer (74 to 106) mg/dL Hemoglobin A1c (4.5-6.0) % Lactic Acid 1.6 (0.4-2.0) Calcium (8.4-10.2) mg/dL Magnesium (1.6-2.3) mg/dL Total Bilirubin (0.2-1.3) mg/dL AST (14-36) U/L ALT (0-35) U/L Alkaline Phosphatase (38-126) U/L Creatine Kinase (30-135) U/L Troponin I (0.000-0.034) ng/mL NT-Pro-B Natriuret Pep (<300) pg/mL Serum Total Protein (6.3-8.2) g/dL Albumin (3.5-5.0) g/dL Procalcitonin (0.030-0.080) ng/mL TSH 3rd Generation (0.47-4.68) mIU/L Serum HCG, Qual (NEGATIVE) Urine Color Yellow (Yellow) Urine Appearance Cloudy A (Clear) Urine pH 6.0 (4.6-8.0) Ur Specific [place] <=1.005 (1.005-1.030) Urine Protein 100 A (Negative) Urine Glucose (UA) 500 A (Negative) mg/dL Urine Ketones Trace A (Negative) Urine Blood Small A (Negative) Urine Nitrite Negative (Negative) Urine Bilirubin Negative (Negative) Urine Urobilinogen 0.2 (0.2) mg/dL Ur Leukocyte Esterase Small A (Negative) U Hyaline Cast (Auto) NONE SEEN (0-2) /LPF Urine Microscopic RBC 0-2 (0-5) /HPF Urine Microscopic WBC 11-20 A (0-5) /HPF Ur Epithelial Cells Few (None Seen) /HPF Urine Bacteria Few A (None Seen) /HPF Ur Yeast w Hyphae Few A (None Seen) /HPF Urine Yeast (Budding) Moderate A (None Seen) /HPF Urine Culture Reflexed YES (NO) Influenza Type A Ag (NEGATIVE) Influenza Type B Ag (NEGATIVE) RSV (PCR) (NEGATIVE) SARS-CoV-2 (PCR) (NEGATIVE) 06/15/23 06/15/23 06/15/23 Range/Units 10:52 10:52 10:52 WBC (4.0-10.5) x10^3/uL RBC (4.1-5.4) x10^6/uL Hgb (12.0-16.0) g/dL Hct (35-47) % MCV (78-100) fL MCH (26-32) pg MCHC (32-36) g/dL RDW (11.5-14.0) % Plt Count (150-450) x10^3/uL MPV (7.5-11.0) fL Gran % (36.0-66.0) % Immature Gran % (Auto) (0.00-0.4) % Nucleat RBC Rel Count (0.00-0.1) % Eos # (Auto) (0-0.5) x10^3/uL Immature Gran # (Auto) (0.00-0.03) x10^3u/L Absolute Lymphs (auto) (1.0-4.6) x10^3/uL Absolute Monos (auto) (0.0-1.3) x10^3/uL Absolute Nucleated RBC (0.00-0.01) x10^3u/L Lymphocytes % (24.0-44.0) % Monocytes % (0.0-12.0) % Eosinophils % (0.00-5.0) % Basophils % (0.0-0.4) % Absolute Granulocytes (1.4-6.9) x10^3/uL Basophils # (0-0.4) x10^3/uL D-Dimer 0.84 H* (0.0-0.50) mg/L Sodium 144 (135-145) mmol/L Potassium 3.5 (3.5-5.1) mmol/L Chloride 107 (98-107) mmol/L Carbon Dioxide 24 (22-30) mmol/L Anion Gap 17.0 H (5-15) MEQ/L BUN 12 (7-17) mg/dL Creatinine 0.54 (0.52-1.04) mg/dL Estimated GFR 118.6 ML/MIN Glucose 87 (74-106) mg/dL POC Glucometer (74 to 106) mg/dL Hemoglobin A1c (4.5-6.0) % Lactic Acid (0.4-2.0) Calcium 9.1 (8.4-10.2) mg/dL Magnesium 2.0 (1.6-2.3) mg/dL Total Bilirubin 0.50 (0.2-1.3) mg/dL AST 29 (14-36) U/L ALT 21 (0-35) U/L Alkaline Phosphatase 91 (38-126) U/L Creatine Kinase 234 H (30-135) U/L Troponin I < 0.012 (0.000-0.034) ng/mL NT-Pro-B Natriuret Pep 24.0 (<300) pg/mL Serum Total Protein 8.9 H (6.3-8.2) g/dL Albumin 4.7 (3.5-5.0) g/dL Procalcitonin 0.053 (0.030-0.080) ng/mL TSH 3rd Generation (0.47-4.68) mIU/L Serum HCG, Qual (NEGATIVE) Urine Color (Yellow) Urine Appearance (Clear) Urine pH (4.6-8.0) Ur Specific [place] (1.005-1.030) Urine Protein (Negative) Urine Glucose (UA) (Negative) mg/dL Urine Ketones (Negative) Urine Blood (Negative) Urine Nitrite (Negative) Urine Bilirubin (Negative) Urine Urobilinogen (0.2) mg/dL Ur Leukocyte Esterase (Negative) U Hyaline Cast (Auto) (0-2) /LPF Urine Microscopic RBC (0-5) /HPF Urine Microscopic WBC (0-5) /HPF Ur Epithelial Cells (None Seen) /HPF Urine Bacteria (None Seen) /HPF Ur Yeast w Hyphae (None Seen) /HPF Urine Yeast (Budding) (None Seen) /HPF Urine Culture Reflexed (NO) Influenza Type A Ag (NEGATIVE) Influenza Type B Ag (NEGATIVE) RSV (PCR) (NEGATIVE) SARS-CoV-2 (PCR) (NEGATIVE) 06/15/23 06/15/23 06/15/23 Range/Units 10:52 10:52 10:52 WBC (4.0-10.5) x10^3/uL RBC (4.1-5.4) x10^6/uL Hgb (12.0-16.0) g/dL Hct (35-47) % MCV (78-100) fL MCH (26-32) pg MCHC (32-36) g/dL RDW (11.5-14.0) % Plt Count (150-450) x10^3/uL MPV (7.5-11.0) fL Gran % (36.0-66.0) % Immature Gran % (Auto) (0.00-0.4) % Nucleat RBC Rel Count (0.00-0.1) % Eos # (Auto) (0-0.5) x10^3/uL Immature Gran # (Auto) (0.00-0.03) x10^3u/L Absolute Lymphs (auto) (1.0-4.6) x10^3/uL Absolute Monos (auto) (0.0-1.3) x10^3/uL Absolute Nucleated RBC (0.00-0.01) x10^3u/L Lymphocytes % (24.0-44.0) % Monocytes % (0.0-12.0) % Eosinophils % (0.00-5.0) % Basophils % (0.0-0.4) % Absolute Granulocytes (1.4-6.9) x10^3/uL Basophils # (0-0.4) x10^3/uL D-Dimer (0.0-0.50) mg/L Sodium (135-145) mmol/L Potassium (3.5-5.1) mmol/L Chloride (98-107) mmol/L Carbon Dioxide (22-30) mmol/L Anion Gap (5-15) MEQ/L BUN (7-17) mg/dL Creatinine (0.52-1.04) mg/dL Estimated GFR ML/MIN Glucose (74-106) mg/dL POC Glucometer (74 to 106) mg/dL Hemoglobin A1c 6.37 H (4.5-6.0) % Lactic Acid (0.4-2.0) Calcium (8.4-10.2) mg/dL Magnesium (1.6-2.3) mg/dL Total Bilirubin (0.2-1.3) mg/dL AST (14-36) U/L ALT (0-35) U/L Alkaline Phosphatase (38-126) U/L Creatine Kinase (30-135) U/L Troponin I (0.000-0.034) ng/mL NT-Pro-B Natriuret Pep (<300) pg/mL Serum Total Protein (6.3-8.2) g/dL Albumin (3.5-5.0) g/dL Procalcitonin (0.030-0.080) ng/mL TSH 3rd Generation (0.47-4.68) mIU/L Serum HCG, Qual NEGATIVE (NEGATIVE) Urine Color (Yellow) Urine Appearance (Clear) Urine pH (4.6-8.0) Ur Specific [place] (1.005-1.030) Urine Protein (Negative) Urine Glucose (UA) (Negative) mg/dL Urine Ketones (Negative) Urine Blood (Negative) Urine Nitrite (Negative) Urine Bilirubin (Negative) Urine Urobilinogen (0.2) mg/dL Ur Leukocyte Esterase (Negative) U Hyaline Cast (Auto) (0-2) /LPF Urine Microscopic RBC (0-5) /HPF Urine Microscopic WBC (0-5) /HPF Ur Epithelial Cells (None Seen) /HPF Urine Bacteria (None Seen) /HPF Ur Yeast w Hyphae (None Seen) /HPF Urine Yeast (Budding) (None Seen) /HPF Urine Culture Reflexed (NO) Influenza Type A Ag POSITIVE A (NEGATIVE) Influenza Type B Ag NEGATIVE (NEGATIVE) RSV (PCR) NEGATIVE (NEGATIVE) SARS-CoV-2 (PCR) NEGATIVE (NEGATIVE) 03/07/24 03/07/24 03/07/24 Range/Units 14:46 14:54 16:47 WBC (4.0-10.5) x10^3/uL RBC (4.1-5.4) x10^6/uL Hgb (12.0-16.0) g/dL Hct (35-47) % MCV (78-100) fL MCH (26-32) pg MCHC (32-36) g/dL RDW (11.5-14.0) % Plt Count (150-450) x10^3/uL MPV (7.5-11.0) fL Gran % (36.0-66.0) % Immature Gran % (Auto) (0.00-0.4) % Nucleat RBC Rel Count (0.00-0.1) % Eos # (Auto) (0-0.5) x10^3/uL Immature Gran # (Auto) (0.00-0.03) x10^3u/L Absolute Lymphs (auto) (1.0-4.6) x10^3/uL Absolute Monos (auto) (0.0-1.3) x10^3/uL Absolute Nucleated RBC (0.00-0.01) x10^3u/L Lymphocytes % (24.0-44.0) % Monocytes % (0.0-12.0) % Eosinophils % (0.00-5.0) % Basophils % (0.0-0.4) % Absolute Granulocytes (1.4-6.9) x10^3/uL Basophils # (0-0.4) x10^3/uL D-Dimer (0.0-0.50) mg/L Sodium (135-145) mmol/L Potassium (3.5-5.1) mmol/L Chloride (98-107) mmol/L Carbon Dioxide (22-30) mmol/L Anion Gap (5-15) MEQ/L BUN (7-17) mg/dL Creatinine (0.52-1.04) mg/dL Estimated GFR ML/MIN Glucose (74-106) mg/dL POC Glucometer 116 H (74 to 106) mg/dL Hemoglobin A1c (4.5-6.0) % Lactic Acid (0.4-2.0) Calcium (8.4-10.2) mg/dL Magnesium 2.1 (1.6-2.3) mg/dL Total Bilirubin (0.2-1.3) mg/dL AST (14-36) U/L ALT (0-35) U/L Alkaline Phosphatase (38-126) U/L Creatine Kinase (30-135) U/L Troponin I < 0.012 (0.000-0.034) ng/mL NT-Pro-B Natriuret Pep (<300) pg/mL Serum Total Protein (6.3-8.2) g/dL Albumin (3.5-5.0) g/dL Procalcitonin (0.030-0.080) ng/mL TSH 3rd Generation 0.728 (0.47-4.68) mIU/L Serum HCG, Qual (NEGATIVE) Urine Color (Yellow) Urine Appearance (Clear) Urine pH (4.6-8.0) Ur Specific [place] (1.005-1.030) Urine Protein (Negative) Urine Glucose (UA) (Negative) mg/dL Urine Ketones (Negative) Urine Blood (Negative) Urine Nitrite (Negative) Urine Bilirubin (Negative) Urine Urobilinogen (0.2) mg/dL Ur Leukocyte Esterase (Negative) U Hyaline Cast (Auto) (0-2) /LPF Urine Microscopic RBC (0-5) /HPF Urine Microscopic WBC (0-5) /HPF Ur Epithelial Cells (None Seen) /HPF Urine Bacteria (None Seen) /HPF Ur Yeast w Hyphae (None Seen) /HPF Urine Yeast (Budding) (None Seen) /HPF Urine Culture Reflexed (NO) Influenza Type A Ag (NEGATIVE) Influenza Type B Ag (NEGATIVE) RSV (PCR) (NEGATIVE) SARS-CoV-2 (PCR) (NEGATIVE) 06/15/23 06/15/23 06/16/23 Range/Units 19:10 22:47 04:40 WBC 4.1 (4.0-10.5) x10^3/uL RBC 5.21 (4.1-5.4) x10^6/uL Hgb 14.6 (12.0-16.0) g/dL Hct 47.8 H (35-47) % MCV 91.7 (78-100) fL MCH 28.0 (26-32) pg MCHC 30.5 L (32-36) g/dL RDW 15.4 H (11.5-14.0) % Plt Count 254 (150-450) x10^3/uL MPV 10.9 (7.5-11.0) fL Gran % (36.0-66.0) % Immature Gran % (Auto) (0.00-0.4) % Nucleat RBC Rel Count (0.00-0.1) % Eos # (Auto) (0-0.5) x10^3/uL Immature Gran # (Auto) (0.00-0.03) x10^3u/L Absolute Lymphs (auto) (1.0-4.6) x10^3/uL Absolute Monos (auto) (0.0-1.3) x10^3/uL Absolute Nucleated RBC (0.00-0.01) x10^3u/L Lymphocytes % (24.0-44.0) % Monocytes % (0.0-12.0) % Eosinophils % (0.00-5.0) % Basophils % (0.0-0.4) % Absolute Granulocytes (1.4-6.9) x10^3/uL Basophils # (0-0.4) x10^3/uL D-Dimer (0.0-0.50) mg/L Sodium (135-145) mmol/L Potassium (3.5-5.1) mmol/L Chloride (98-107) mmol/L Carbon Dioxide (22-30) mmol/L Anion Gap (5-15) MEQ/L BUN (7-17) mg/dL Creatinine (0.52-1.04) mg/dL Estimated GFR ML/MIN Glucose (74-106) mg/dL POC Glucometer 105 (74 to 106) mg/dL Hemoglobin A1c (4.5-6.0) % Lactic Acid (0.4-2.0) Calcium (8.4-10.2) mg/dL Magnesium (1.6-2.3) mg/dL Total Bilirubin (0.2-1.3) mg/dL AST (14-36) U/L ALT (0-35) U/L Alkaline Phosphatase (38-126) U/L Creatine Kinase (30-135) U/L Troponin I < 0.012 (0.000-0.034) ng/mL NT-Pro-B Natriuret Pep (<300) pg/mL Serum Total Protein (6.3-8.2) g/dL Albumin (3.5-5.0) g/dL Procalcitonin (0.030-0.080) ng/mL TSH 3rd Generation (0.47-4.68) mIU/L Serum HCG, Qual (NEGATIVE) Urine Color (Yellow) Urine Appearance (Clear) Urine pH (4.6-8.0) Ur Specific [place] (1.005-1.030) Urine Protein (Negative) Urine Glucose (UA) (Negative) mg/dL Urine Ketones (Negative) Urine Blood (Negative) Urine Nitrite (Negative) Urine Bilirubin (Negative) Urine Urobilinogen (0.2) mg/dL Ur Leukocyte Esterase (Negative) U Hyaline Cast (Auto) (0-2) /LPF Urine Microscopic RBC (0-5) /HPF Urine Microscopic WBC (0-5) /HPF Ur Epithelial Cells (None Seen) /HPF Urine Bacteria (None Seen) /HPF Ur Yeast w Hyphae (None Seen) /HPF Urine Yeast (Budding) (None Seen) /HPF Urine Culture Reflexed (NO) Influenza Type A Ag (NEGATIVE) Influenza Type B Ag (NEGATIVE) RSV (PCR) (NEGATIVE) SARS-CoV-2 (PCR) (NEGATIVE) 06/16/23 Range/Units 04:40 WBC (4.0-10.5) x10^3/uL RBC (4.1-5.4) x10^6/uL Hgb (12.0-16.0) g/dL Hct (35-47) % MCV (78-100) fL MCH (26-32) pg MCHC (32-36) g/dL RDW (11.5-14.0) % Plt Count (150-450) x10^3/uL MPV (7.5-11.0) fL Gran % (36.0-66.0) % Immature Gran % (Auto) (0.00-0.4) % Nucleat RBC Rel Count (0.00-0.1) % Eos # (Auto) (0-0.5) x10^3/uL Immature Gran # (Auto) (0.00-0.03) x10^3u/L Absolute Lymphs (auto) (1.0-4.6) x10^3/uL Absolute Monos (auto) (0.0-1.3) x10^3/uL Absolute Nucleated RBC (0.00-0.01) x10^3u/L Lymphocytes % (24.0-44.0) % Monocytes % (0.0-12.0) % Eosinophils % (0.00-5.0) % Basophils % (0.0-0.4) % Absolute Granulocytes (1.4-6.9) x10^3/uL Basophils # (0-0.4) x10^3/uL D-Dimer (0.0-0.50) mg/L Sodium 140 (135-145) mmol/L Potassium 4.1 (3.5-5.1) mmol/L Chloride 107 (98-107) mmol/L Carbon Dioxide 24 (22-30) mmol/L Anion Gap 13.6 (5-15) MEQ/L BUN 11 (7-17) mg/dL Creatinine 0.50 L (0.52-1.04) mg/dL Estimated GFR 120.8 ML/MIN Glucose 96 (74-106) mg/dL POC Glucometer (74 to 106) mg/dL Hemoglobin A1c (4.5-6.0) % Lactic Acid (0.4-2.0) Calcium 8.5 (8.4-10.2) mg/dL Magnesium (1.6-2.3) mg/dL Total Bilirubin 0.50 (0.2-1.3) mg/dL AST 32 (14-36) U/L ALT 19 (0-35) U/L Alkaline Phosphatase 75 (38-126) U/L Creatine Kinase (30-135) U/L Troponin I (0.000-0.034) ng/mL NT-Pro-B Natriuret Pep (<300) pg/mL Serum Total Protein 7.7 (6.3-8.2) g/dL Albumin 4.1 (3.5-5.0) g/dL Procalcitonin (0.030-0.080) ng/mL TSH 3rd Generation (0.47-4.68) mIU/L Serum HCG, Qual (NEGATIVE) Urine Color (Yellow) Urine Appearance (Clear) Urine pH (4.6-8.0) Ur Specific [place] (1.005-1.030) Urine Protein (Negative) Urine Glucose (UA) (Negative) mg/dL Urine Ketones (Negative) Urine Blood (Negative) Urine Nitrite (Negative) Urine Bilirubin (Negative) Urine Urobilinogen (0.2) mg/dL Ur Leukocyte Esterase (Negative) U Hyaline Cast (Auto) (0-2) /LPF Urine Microscopic RBC (0-5) /HPF Urine Microscopic WBC (0-5) /HPF Ur Epithelial Cells (None Seen) /HPF Urine Bacteria (None Seen) /HPF Ur Yeast w Hyphae (None Seen) /HPF Urine Yeast (Budding) (None Seen) /HPF Urine Culture Reflexed (NO) Influenza Type A Ag (NEGATIVE) Influenza Type B Ag (NEGATIVE) RSV (PCR) (NEGATIVE) SARS-CoV-2 (PCR) (NEGATIVE) Radiology Exams: Radiology Procedures Category Date Time Status CHEST 1 VIEW (PORTABLE) Stat Exams 06/15/23 10:31 Completed CHEST WITH CONTRAST [CT] Stat Exams 06/15/23 11:40 Completed ECHO W/2D AND DOPPLER [US] Routine Exams 06/16/23 14:54 Ordered Assessment/Plan (1) Atrial fibrillation with rapid ventricular response Current Visit: Yes Status: Acute Assessment & Plan: -Dimer elevated, CT negative for PE, with chronic findings cardiomegaly - new onset, not anticoagulated -consult cardiology, appreciate recs-Monitor on Telemetry-Cardizem drip started in ED, will continue per protocol, rate now controlled, NS at 94 -Metoprolol 12.5 started -rate control to target goal HR <85 bpm at rest if symptomatic, goal HR <110 bpm if asymptomatic -ECHO pending -Once HR maintained begin PO/taper drip and discontinue two hours after second oral [id number]: 3-optimize electrolytes for goal of K at 4 and magnesium at 2 -TSH 06/15: -Cards consulted with recs for metoprolol 12.5mg BID, lisinopril 2.5mg daily, and xarelto 20mg daily. They will follow with her in 1-2 weeks s/d d/c. Code(s): I48.91 - UNSPECIFIED ATRIAL FIBRILLATION (2) Acute UTI Current Visit: Yes Status: Acute Assessment & Plan: -mildly suspicious for UTI, will start empiric abx and follow culture, yeast also observed, will give diflucan Code(s): N39.0 - URINARY TRACT INFECTION, SITE NOT SPECIFIED (3) Influenza A Current Visit: Yes Status: Acute Assessment & Plan: -CT chest with no obvious PE, bilateral patchy airspace disease -Supportive care with supplemental oxygen as needed to maintain spo2 >92%, anti- pyretics, anti-emetics -Tamiflu initiated in ED, will continue Code(s): J10.1 - FLU DUE TO OTH IDENT INFLUENZA VIRUS W OTH RESP MANIFEST (4) Diabetes mellitus Current Visit: Yes Status: Acute Assessment & Plan: -A1c -SSI/Lantus -ADA diet Code(s): E11.9 - TYPE 2 DIABETES MELLITUS WITHOUT COMPLICATIONS (5) HTN (hypertension) Current Visit: Yes Status: Acute Assessment & Plan: -Stable, continue home medication Code(s): I10 - ESSENTIAL (PRIMARY) HYPERTENSION Code(s): I48.91 - UNSPECIFIED ATRIAL FIBRILLATION (2) Acute UTI Current Visit: Yes Status: Acute Code(s): N39.0 - URINARY TRACT INFECTION, SITE NOT SPECIFIED (3) Influenza A Current Visit: Yes Status: Acute Code(s): J10.1 - FLU DUE TO OTH IDENT INFLUENZA VIRUS W OTH RESP MANIFEST (4) Diabetes mellitus Current Visit: Yes Status: Acute Code(s): E11.9 - TYPE 2 DIABETES MELLITUS WITHOUT COMPLICATIONS (5) HTN (hypertension) Current Visit: Yes Status: Acute Code(s): I10 - ESSENTIAL (PRIMARY) HYPERTENSION
[2023-06-16 07:23] LABS: ATYPICAL LYMPHS 1 %; Lymphocytes 28 % (24-44); Monocyte 11 % (0.0-12.0); Neutrophils 60 % (36.0-66.0); Total Cells Counted 100
[2023-06-16 07:24] LABS: Platelet Estimate NORMAL (NORMAL)
[2023-06-16] MEDS: Zithromax 500 MG/ 250 ML NaCl Premix 500 MG/250 ML IVPB IV SCH (09:09)
[2023-06-16] MEDS: Zestril 5 MG PO SCH (09:09)
[2023-06-16] MEDS ORDERED: Zestril 10 MG PO SCH (10:00)
--- NOTE | 2023-06-16 11:32 | PCM.DS ---
Discharge Summary Date of Admission: 06/15/23 14:46 Date of Discharge: 06/16/23 Admitting Physician: BART PAUL MD Consults: Consults on Case 06/15/23 14:53 Cardiology Consult [Notify Supervisor Model Making of Admit] ROUTINE Primary Care Provider: JUAN MANUEL CHINO Allergies Allergies phenobarbital Allergy (Verified 06/15/23 09:57) Hospital Summary - Hospital Course Hospital Course: is a 42 year old female Ms. Vanegas is a 42 year old female with a pmhx of HTN, DMII, and morbid obestity who presented to ED 06/15/23 with complaints of progressive shortness of breath, productive cough with green sputum, and body days. Onset of symptoms was approximately four days ago. She was seen outpatient as she has had sick contacts with influenza A., but tested negative at that time. She reports that symptoms got worse last evening where she was having a hard time catching her breath with chest pressure which prompted her to report to the emergency room today. In ED, patient was afebrile, hypertensive, tachypneic, and tachycardic with HR measured at 143. Chest CT demonstrates scattered bilateral patchy airspace disease. Negative for PE. EKG interpreted by ED physician showing RATE (131), A-fib, NORMAL AXIS, NORMAL INTERVALS, Q-wave, Non-specific ST Changes. Lab finding remarkable for elevated Ddimer at 0.84 (CTA negative PE), CK 234. UA with leuks/yeast, Influenza A positive. Patient given rocephin, Tamiflu, fluid bolus, cardizem bolus, and started on cardizem drip. She is admitted with influenza/pneumonia/AFIB RVR/UTI. IP treatment with rocephin/azith/tamiflu/metoprolol. Cards consulted with recs for metoprolol 12.5mg BID, lisinopril 2.5mg daily, and xarelto 20mg daily. HR now controlled. They will follow with her in 1-2 weeks s/d d/c. Urine culture negative. Dyspnea has improved. Patient stable for discharge. Discharge Note New Diagnosis: Pneumonia/influenza/AFIB RVR New Medications: metoprolol/xarelto/tamiflu/cefpodoxime/zpack Follow Up: pcp/cardiology Results pending: blood cult Latest Assessment & Plan (1) Atrial fibrillation with rapid ventricular response Current Visit: Yes Status: Acute Assessment & Plan: -Dimer elevated, CT negative for PE, with chronic findings cardiomegaly - new onset, not anticoagulated -consult cardiology, appreciate recs-Monitor on Telemetry-Cardizem drip started in ED, will continue per protocol, rate now controlled, NS at 94 -Metoprolol 12.5 started -rate control to target goal HR <85 bpm at rest if symptomatic, goal HR <110 bpm if asymptomatic -ECHO pending -Once HR maintained begin PO/taper drip and discontinue two hours after second oral [id number]: 3-optimize electrolytes for goal of K at 4 and magnesium at 2 -TSH 06/15: -Cards consulted with recs for metoprolol 12.5mg BID, lisinopril 2.5mg daily, and xarelto 20mg daily. They will follow with her in 1-2 weeks s/d d/c. Code(s): I48.91 - UNSPECIFIED ATRIAL FIBRILLATION (2) Acute UTI Current Visit: Yes Status: Acute Assessment & Plan: -mildly suspicious for UTI, will start empiric abx and follow culture, yeast also observed, will give diflucan Code(s): N39.0 - URINARY TRACT INFECTION, SITE NOT SPECIFIED (3) Influenza A Current Visit: Yes Status: Acute Assessment & Plan: -CT chest with no obvious PE, bilateral patchy airspace disease -Supportive care with supplemental oxygen as needed to maintain spo2 >92%, anti- pyretics, anti-emetics -Tamiflu initiated in ED, will continue Code(s): J10.1 - FLU DUE TO OTH IDENT INFLUENZA VIRUS W OTH RESP MANIFEST (4) Diabetes mellitus Current Visit: Yes Status: Acute Assessment & Plan: -A1c -SSI/Lantus -ADA diet Code(s): E11.9 - TYPE 2 DIABETES MELLITUS WITHOUT COMPLICATIONS (5) HTN (hypertension) Current Visit: Yes Status: Acute Assessment & Plan: -Stable, continue home medication Code(s): I10 - ESSENTIAL (PRIMARY) HYPERTENSION I spent 35 minutes [id number] with the patient on the day of discharge performing discharge exam, discussing hospital stay and discharge instructions with patient and caregivers, preparation of discharge records, prescriptions & referral forms and addressing any questions/concerns the patient had as documented above. - Vitals & Intake/Output Vital Signs: Vital Signs Temperature 97.9 F 06/16/23 07:21 Pulse Rate 74 06/16/23 08:30 Respiratory Rate 19 06/16/23 08:30 Blood Pressure 130/96 06/16/23 07:21 O2 Sat by Pulse Oximetry 96 06/16/23 08:49 Intake & Output: Intake & Output 06/13/23 06/14/23 06/15/23 06/16/23 11:59 11:59 11:59 11:59 Intake Total 1560 Output Total 725 Balance 835 Weight 155.582 kg 151.7 kg - Lab Result Diagrams: 06/16/23 04:40 06/16/23 04:40 Lab Results-Last 24 Hrs: Lab Results-Last 24 Hours 06/15/23 06/15/23 06/15/23 Range/Units 10:32 10:52 10:52 WBC 8.0 (4.0-10.5) x10^3/uL RBC 5.67 H (4.1-5.4) x10^6/uL Hgb 15.9 (12.0-16.0) g/dL Hct 51.3 H (35-47) % MCV 90.5 (78-100) fL MCH 28.0 (26-32) pg MCHC 31.0 L (32-36) g/dL RDW 15.2 H (11.5-14.0) % Plt Count 294 (150-450) x10^3/uL MPV 11.3 H (7.5-11.0) fL Gran % 72.2 H (36.0-66.0) % Immature Gran % (Auto) 0.2 (0.00-0.4) % Nucleat RBC Rel Count 0.0 (0.00-0.1) % Eos # (Auto) 0.06 (0-0.5) x10^3/uL Immature Gran # (Auto) 0.02 (0.00-0.03) x10^3u/L Absolute Lymphs (auto) 1.45 (1.0-4.6) x10^3/uL Absolute Monos (auto) 0.67 (0.0-1.3) x10^3/uL Absolute Nucleated RBC 0.00 (0.00-0.01) x10^3u/L Lymphocytes % 18.1 L (24.0-44.0) % Monocytes % 8.4 (0.0-12.0) % Eosinophils % 0.7 (0.00-5.0) % Basophils % 0.4 (0.0-0.4) % Absolute Granulocytes 5.79 (1.4-6.9) x10^3/uL Segmented Neutrophils (36.0-66.0) % Lymphocytes (Manual) (24-44) % Monocytes (Manual) (0.0-12.0) % Basophils # 0.03 (0-0.4) x10^3/uL Atypical Lymphocytes % Platelet Estimate (NORMAL) RBC Morphology D-Dimer (0.0-0.50) mg/L Sodium 144 (135-145) mmol/L Potassium 3.5 (3.5-5.1) mmol/L Chloride 107 (98-107) mmol/L Carbon Dioxide 24 (22-30) mmol/L Anion Gap 17.0 H (5-15) MEQ/L BUN 12 (7-17) mg/dL Creatinine 0.54 (0.52-1.04) mg/dL Estimated GFR 118.6 ML/MIN Glucose 87 (74-106) mg/dL POC Glucometer (74 to 106) mg/dL Hemoglobin A1c (4.5-6.0) % Calcium 9.1 (8.4-10.2) mg/dL Magnesium 2.0 (1.6-2.3) mg/dL Total Bilirubin 0.50 (0.2-1.3) mg/dL AST 29 (14-36) U/L ALT 21 (0-35) U/L Alkaline Phosphatase 91 (38-126) U/L Creatine Kinase 234 H (30-135) U/L Troponin I (0.000-0.034) ng/mL NT-Pro-B Natriuret Pep 24.0 (<300) pg/mL Serum Total Protein 8.9 H (6.3-8.2) g/dL Albumin 4.7 (3.5-5.0) g/dL Procalcitonin 0.053 (0.030-0.080) ng/mL TSH 3rd Generation (0.47-4.68) mIU/L Serum HCG, Qual (NEGATIVE) Urine Color Yellow (Yellow) Urine Appearance Cloudy A (Clear) Urine pH 6.0 (4.6-8.0) Ur Specific [place] <=1.005 (1.005-1.030) Urine Protein 100 A (Negative) Urine Glucose (UA) 500 A (Negative) mg/dL Urine Ketones Trace A (Negative) Urine Blood Small A (Negative) Urine Nitrite Negative (Negative) Urine Bilirubin Negative (Negative) Urine Urobilinogen 0.2 (0.2) mg/dL Ur Leukocyte Esterase Small A (Negative) U Hyaline Cast (Auto) NONE SEEN (0-2) /LPF Urine Microscopic RBC 0-2 (0-5) /HPF Urine Microscopic WBC 11-20 A (0-5) /HPF Ur Epithelial Cells Few (None Seen) /HPF Urine Bacteria Few A (None Seen) /HPF Ur Yeast w Hyphae Few A (None Seen) /HPF Urine Yeast (Budding) Moderate A (None Seen) /HPF Urine Culture Reflexed YES (NO) Influenza Type A Ag (NEGATIVE) Influenza Type B Ag (NEGATIVE) RSV (PCR) (NEGATIVE) SARS-CoV-2 (PCR) (NEGATIVE) 06/15/23 06/15/23 06/15/23 Range/Units 10:52 10:52 10:52 WBC (4.0-10.5) x10^3/uL RBC (4.1-5.4) x10^6/uL Hgb (12.0-16.0) g/dL Hct (35-47) % MCV (78-100) fL MCH (26-32) pg MCHC (32-36) g/dL RDW (11.5-14.0) % Plt Count (150-450) x10^3/uL MPV (7.5-11.0) fL Gran % (36.0-66.0) % Immature Gran % (Auto) (0.00-0.4) % Nucleat RBC Rel Count (0.00-0.1) % Eos # (Auto) (0-0.5) x10^3/uL Immature Gran # (Auto) (0.00-0.03) x10^3u/L Absolute Lymphs (auto) (1.0-4.6) x10^3/uL Absolute Monos (auto) (0.0-1.3) x10^3/uL Absolute Nucleated RBC (0.00-0.01) x10^3u/L Lymphocytes % (24.0-44.0) % Monocytes % (0.0-12.0) % Eosinophils % (0.00-5.0) % Basophils % (0.0-0.4) % Absolute Granulocytes (1.4-6.9) x10^3/uL Segmented Neutrophils (36.0-66.0) % Lymphocytes (Manual) (24-44) % Monocytes (Manual) (0.0-12.0) % Basophils # (0-0.4) x10^3/uL Atypical Lymphocytes % Platelet Estimate (NORMAL) RBC Morphology D-Dimer 0.84 H* (0.0-0.50) mg/L Sodium (135-145) mmol/L Potassium (3.5-5.1) mmol/L Chloride (98-107) mmol/L Carbon Dioxide (22-30) mmol/L Anion Gap (5-15) MEQ/L BUN (7-17) mg/dL Creatinine (0.52-1.04) mg/dL Estimated GFR ML/MIN Glucose (74-106) mg/dL POC Glucometer (74 to 106) mg/dL Hemoglobin A1c (4.5-6.0) % Calcium (8.4-10.2) mg/dL Magnesium (1.6-2.3) mg/dL Total Bilirubin (0.2-1.3) mg/dL AST (14-36) U/L ALT (0-35) U/L Alkaline Phosphatase (38-126) U/L Creatine Kinase (30-135) U/L Troponin I < 0.012 (0.000-0.034) ng/mL NT-Pro-B Natriuret Pep (<300) pg/mL Serum Total Protein (6.3-8.2) g/dL Albumin (3.5-5.0) g/dL Procalcitonin (0.030-0.080) ng/mL TSH 3rd Generation (0.47-4.68) mIU/L Serum HCG, Qual NEGATIVE (NEGATIVE) Urine Color (Yellow) Urine Appearance (Clear) Urine pH (4.6-8.0) Ur Specific [place] (1.005-1.030) Urine Protein (Negative) Urine Glucose (UA) (Negative) mg/dL Urine Ketones (Negative) Urine Blood (Negative) Urine Nitrite (Negative) Urine Bilirubin (Negative) Urine Urobilinogen (0.2) mg/dL Ur Leukocyte Esterase (Negative) U Hyaline Cast (Auto) (0-2) /LPF Urine Microscopic RBC (0-5) /HPF Urine Microscopic WBC (0-5) /HPF Ur Epithelial Cells (None Seen) /HPF Urine Bacteria (None Seen) /HPF Ur Yeast w Hyphae (None Seen) /HPF Urine Yeast (Budding) (None Seen) /HPF Urine Culture Reflexed (NO) Influenza Type A Ag (NEGATIVE) Influenza Type B Ag (NEGATIVE) RSV (PCR) (NEGATIVE) SARS-CoV-2 (PCR) (NEGATIVE) 06/15/23 06/15/23 06/15/23 Range/Units 10:52 10:52 14:46 WBC (4.0-10.5) x10^3/uL RBC (4.1-5.4) x10^6/uL Hgb (12.0-16.0) g/dL Hct (35-47) % MCV (78-100) fL MCH (26-32) pg MCHC (32-36) g/dL RDW (11.5-14.0) % Plt Count (150-450) x10^3/uL MPV (7.5-11.0) fL Gran % (36.0-66.0) % Immature Gran % (Auto) (0.00-0.4) % Nucleat RBC Rel Count (0.00-0.1) % Eos # (Auto) (0-0.5) x10^3/uL Immature Gran # (Auto) (0.00-0.03) x10^3u/L Absolute Lymphs (auto) (1.0-4.6) x10^3/uL Absolute Monos (auto) (0.0-1.3) x10^3/uL Absolute Nucleated RBC (0.00-0.01) x10^3u/L Lymphocytes % (24.0-44.0) % Monocytes % (0.0-12.0) % Eosinophils % (0.00-5.0) % Basophils % (0.0-0.4) % Absolute Granulocytes (1.4-6.9) x10^3/uL Segmented Neutrophils (36.0-66.0) % Lymphocytes (Manual) (24-44) % Monocytes (Manual) (0.0-12.0) % Basophils # (0-0.4) x10^3/uL Atypical Lymphocytes % Platelet Estimate (NORMAL) RBC Morphology D-Dimer (0.0-0.50) mg/L Sodium (135-145) mmol/L Potassium (3.5-5.1) mmol/L Chloride (98-107) mmol/L Carbon Dioxide (22-30) mmol/L Anion Gap (5-15) MEQ/L BUN (7-17) mg/dL Creatinine (0.52-1.04) mg/dL Estimated GFR ML/MIN Glucose (74-106) mg/dL POC Glucometer (74 to 106) mg/dL Hemoglobin A1c 6.37 H (4.5-6.0) % Calcium (8.4-10.2) mg/dL Magnesium (1.6-2.3) mg/dL Total Bilirubin (0.2-1.3) mg/dL AST (14-36) U/L ALT (0-35) U/L Alkaline Phosphatase (38-126) U/L Creatine Kinase (30-135) U/L Troponin I < 0.012 (0.000-0.034) ng/mL NT-Pro-B Natriuret Pep (<300) pg/mL Serum Total Protein (6.3-8.2) g/dL Albumin (3.5-5.0) g/dL Procalcitonin (0.030-0.080) ng/mL TSH 3rd Generation (0.47-4.68) mIU/L Serum HCG, Qual (NEGATIVE) Urine Color (Yellow) Urine Appearance (Clear) Urine pH (4.6-8.0) Ur Specific [place] (1.005-1.030) Urine Protein (Negative) Urine Glucose (UA) (Negative) mg/dL Urine Ketones (Negative) Urine Blood (Negative) Urine Nitrite (Negative) Urine Bilirubin (Negative) Urine Urobilinogen (0.2) mg/dL Ur Leukocyte Esterase (Negative) U Hyaline Cast (Auto) (0-2) /LPF Urine Microscopic RBC (0-5) /HPF Urine Microscopic WBC (0-5) /HPF Ur Epithelial Cells (None Seen) /HPF Urine Bacteria (None Seen) /HPF Ur Yeast w Hyphae (None Seen) /HPF Urine Yeast (Budding) (None Seen) /HPF Urine Culture Reflexed (NO) Influenza Type A Ag POSITIVE A (NEGATIVE) Influenza Type B Ag NEGATIVE (NEGATIVE) RSV (PCR) NEGATIVE (NEGATIVE) SARS-CoV-2 (PCR) NEGATIVE (NEGATIVE) 06/15/23 06/15/23 06/15/23 Range/Units 14:54 16:47 19:10 WBC (4.0-10.5) x10^3/uL RBC (4.1-5.4) x10^6/uL Hgb (12.0-16.0) g/dL Hct (35-47) % MCV (78-100) fL MCH (26-32) pg MCHC (32-36) g/dL RDW (11.5-14.0) % Plt Count (150-450) x10^3/uL MPV (7.5-11.0) fL Gran % (36.0-66.0) % Immature Gran % (Auto) (0.00-0.4) % Nucleat RBC Rel Count (0.00-0.1) % Eos # (Auto) (0-0.5) x10^3/uL Immature Gran # (Auto) (0.00-0.03) x10^3u/L Absolute Lymphs (auto) (1.0-4.6) x10^3/uL Absolute Monos (auto) (0.0-1.3) x10^3/uL Absolute Nucleated RBC (0.00-0.01) x10^3u/L Lymphocytes % (24.0-44.0) % Monocytes % (0.0-12.0) % Eosinophils % (0.00-5.0) % Basophils % (0.0-0.4) % Absolute Granulocytes (1.4-6.9) x10^3/uL Segmented Neutrophils (36.0-66.0) % Lymphocytes (Manual) (24-44) % Monocytes (Manual) (0.0-12.0) % Basophils # (0-0.4) x10^3/uL Atypical Lymphocytes % Platelet Estimate (NORMAL) RBC Morphology D-Dimer (0.0-0.50) mg/L Sodium (135-145) mmol/L Potassium (3.5-5.1) mmol/L Chloride (98-107) mmol/L Carbon Dioxide (22-30) mmol/L Anion Gap (5-15) MEQ/L BUN (7-17) mg/dL Creatinine (0.52-1.04) mg/dL Estimated GFR ML/MIN Glucose (74-106) mg/dL POC Glucometer 116 H (74 to 106) mg/dL Hemoglobin A1c (4.5-6.0) % Calcium (8.4-10.2) mg/dL Magnesium 2.1 (1.6-2.3) mg/dL Total Bilirubin (0.2-1.3) mg/dL AST (14-36) U/L ALT (0-35) U/L Alkaline Phosphatase (38-126) U/L Creatine Kinase (30-135) U/L Troponin I < 0.012 (0.000-0.034) ng/mL NT-Pro-B Natriuret Pep (<300) pg/mL Serum Total Protein (6.3-8.2) g/dL Albumin (3.5-5.0) g/dL Procalcitonin (0.030-0.080) ng/mL TSH 3rd Generation 0.728 (0.47-4.68) mIU/L Serum HCG, Qual (NEGATIVE) Urine Color (Yellow) Urine Appearance (Clear) Urine pH (4.6-8.0) Ur Specific [place] (1.005-1.030) Urine Protein (Negative) Urine Glucose (UA) (Negative) mg/dL Urine Ketones (Negative) Urine Blood (Negative) Urine Nitrite (Negative) Urine Bilirubin (Negative) Urine Urobilinogen (0.2) mg/dL Ur Leukocyte Esterase (Negative) U Hyaline Cast (Auto) (0-2) /LPF Urine Microscopic RBC (0-5) /HPF Urine Microscopic WBC (0-5) /HPF Ur Epithelial Cells (None Seen) /HPF Urine Bacteria (None Seen) /HPF Ur Yeast w Hyphae (None Seen) /HPF Urine Yeast (Budding) (None Seen) /HPF Urine Culture Reflexed (NO) Influenza Type A Ag (NEGATIVE) Influenza Type B Ag (NEGATIVE) RSV (PCR) (NEGATIVE) SARS-CoV-2 (PCR) (NEGATIVE) 06/15/23 06/16/23 06/16/23 Range/Units 22:47 04:40 04:40 WBC 4.1 (4.0-10.5) x10^3/uL RBC 5.21 (4.1-5.4) x10^6/uL Hgb 14.6 (12.0-16.0) g/dL Hct 47.8 H (35-47) % MCV 91.7 (78-100) fL MCH 28.0 (26-32) pg MCHC 30.5 L (32-36) g/dL RDW 15.4 H (11.5-14.0) % Plt Count 254 (150-450) x10^3/uL MPV 10.9 (7.5-11.0) fL Gran % (36.0-66.0) % Immature Gran % (Auto) (0.00-0.4) % Nucleat RBC Rel Count (0.00-0.1) % Eos # (Auto) (0-0.5) x10^3/uL Immature Gran # (Auto) (0.00-0.03) x10^3u/L Absolute Lymphs (auto) (1.0-4.6) x10^3/uL Absolute Monos (auto) (0.0-1.3) x10^3/uL Absolute Nucleated RBC (0.00-0.01) x10^3u/L Lymphocytes % (24.0-44.0) % Monocytes % (0.0-12.0) % Eosinophils % (0.00-5.0) % Basophils % (0.0-0.4) % Absolute Granulocytes (1.4-6.9) x10^3/uL Segmented Neutrophils 60 (36.0-66.0) % Lymphocytes (Manual) 28 (24-44) % Monocytes (Manual) 11 (0.0-12.0) % Basophils # (0-0.4) x10^3/uL Atypical Lymphocytes 1 % Platelet Estimate NORMAL (NORMAL) RBC Morphology NORMAL D-Dimer (0.0-0.50) mg/L Sodium 140 (135-145) mmol/L Potassium 4.1 (3.5-5.1) mmol/L Chloride 107 (98-107) mmol/L Carbon Dioxide 24 (22-30) mmol/L Anion Gap 13.6 (5-15) MEQ/L BUN 11 (7-17) mg/dL Creatinine 0.50 L (0.52-1.04) mg/dL Estimated GFR 120.8 ML/MIN Glucose 96 (74-106) mg/dL POC Glucometer 105 (74 to 106) mg/dL Hemoglobin A1c (4.5-6.0) % Calcium 8.5 (8.4-10.2) mg/dL Magnesium (1.6-2.3) mg/dL Total Bilirubin 0.50 (0.2-1.3) mg/dL AST 32 (14-36) U/L ALT 19 (0-35) U/L Alkaline Phosphatase 75 (38-126) U/L Creatine Kinase (30-135) U/L Troponin I (0.000-0.034) ng/mL NT-Pro-B Natriuret Pep (<300) pg/mL Serum Total Protein 7.7 (6.3-8.2) g/dL Albumin 4.1 (3.5-5.0) g/dL Procalcitonin (0.030-0.080) ng/mL TSH 3rd Generation (0.47-4.68) mIU/L Serum HCG, Qual (NEGATIVE) Urine Color (Yellow) Urine Appearance (Clear) Urine pH (4.6-8.0) Ur Specific [place] (1.005-1.030) Urine Protein (Negative) Urine Glucose (UA) (Negative) mg/dL Urine Ketones (Negative) Urine Blood (Negative) Urine Nitrite (Negative) Urine Bilirubin (Negative) Urine Urobilinogen (0.2) mg/dL Ur Leukocyte Esterase (Negative) U Hyaline Cast (Auto) (0-2) /LPF Urine Microscopic RBC (0-5) /HPF Urine Microscopic WBC (0-5) /HPF Ur Epithelial Cells (None Seen) /HPF Urine Bacteria (None Seen) /HPF Ur Yeast w Hyphae (None Seen) /HPF Urine Yeast (Budding) (None Seen) /HPF Urine Culture Reflexed (NO) Influenza Type A Ag (NEGATIVE) Influenza Type B Ag (NEGATIVE) RSV (PCR) (NEGATIVE) SARS-CoV-2 (PCR) (NEGATIVE) 06/16/23 Range/Units 07:14 WBC (4.0-10.5) x10^3/uL RBC (4.1-5.4) x10^6/uL Hgb (12.0-16.0) g/dL Hct (35-47) % MCV (78-100) fL MCH (26-32) pg MCHC (32-36) g/dL RDW (11.5-14.0) % Plt Count (150-450) x10^3/uL MPV (7.5-11.0) fL Gran % (36.0-66.0) % Immature Gran % (Auto) (0.00-0.4) % Nucleat RBC Rel Count (0.00-0.1) % Eos # (Auto) (0-0.5) x10^3/uL Immature Gran # (Auto) (0.00-0.03) x10^3u/L Absolute Lymphs (auto) (1.0-4.6) x10^3/uL Absolute Monos (auto) (0.0-1.3) x10^3/uL Absolute Nucleated RBC (0.00-0.01) x10^3u/L Lymphocytes % (24.0-44.0) % Monocytes % (0.0-12.0) % Eosinophils % (0.00-5.0) % Basophils % (0.0-0.4) % Absolute Granulocytes (1.4-6.9) x10^3/uL Segmented Neutrophils (36.0-66.0) % Lymphocytes (Manual) (24-44) % Monocytes (Manual) (0.0-12.0) % Basophils # (0-0.4) x10^3/uL Atypical Lymphocytes % Platelet Estimate (NORMAL) RBC Morphology D-Dimer (0.0-0.50) mg/L Sodium (135-145) mmol/L Potassium (3.5-5.1) mmol/L Chloride (98-107) mmol/L Carbon Dioxide (22-30) mmol/L Anion Gap (5-15) MEQ/L BUN (7-17) mg/dL Creatinine (0.52-1.04) mg/dL Estimated GFR ML/MIN Glucose (74-106) mg/dL POC Glucometer 92 (74 to 106) mg/dL Hemoglobin A1c (4.5-6.0) % Calcium (8.4-10.2) mg/dL Magnesium (1.6-2.3) mg/dL Total Bilirubin (0.2-1.3) mg/dL AST (14-36) U/L ALT (0-35) U/L Alkaline Phosphatase (38-126) U/L Creatine Kinase (30-135) U/L Troponin I (0.000-0.034) ng/mL NT-Pro-B Natriuret Pep (<300) pg/mL Serum Total Protein (6.3-8.2) g/dL Albumin (3.5-5.0) g/dL Procalcitonin (0.030-0.080) ng/mL TSH 3rd Generation (0.47-4.68) mIU/L Serum HCG, Qual (NEGATIVE) Urine Color (Yellow) Urine Appearance (Clear) Urine pH (4.6-8.0) Ur Specific [place] (1.005-1.030) Urine Protein (Negative) Urine Glucose (UA) (Negative) mg/dL Urine Ketones (Negative) Urine Blood (Negative) Urine Nitrite (Negative) Urine Bilirubin (Negative) Urine Urobilinogen (0.2) mg/dL Ur Leukocyte Esterase (Negative) U Hyaline Cast (Auto) (0-2) /LPF Urine Microscopic RBC (0-5) /HPF Urine Microscopic WBC (0-5) /HPF Ur Epithelial Cells (None Seen) /HPF Urine Bacteria (None Seen) /HPF Ur Yeast w Hyphae (None Seen) /HPF Urine Yeast (Budding) (None Seen) /HPF Urine Culture Reflexed (NO) Influenza Type A Ag (NEGATIVE) Influenza Type B Ag (NEGATIVE) RSV (PCR) (NEGATIVE) SARS-CoV-2 (PCR) (NEGATIVE) Micro Results-Entire Visit: Microbiology 06/15/23 10:32 Urine Culture - Preliminary Urine, Void <10K NORMAL SKIN ROBINA PROBABLE SKIN CONTAMINANT Accuchecks Date 06/16/23 Date 06/15/23 Time 07:21 - Radiology Exams Ordered Rad Exams-Entire Visit: Radiology Procedures Category Date Time Status CHEST 1 VIEW (PORTABLE) Stat Exams 06/15/23 10:31 Completed CHEST WITH CONTRAST [CT] Stat Exams 06/15/23 11:40 Completed ECHO W/2D AND DOPPLER [US] Routine Exams 06/16/23 14:54 Taken - Procedures and Test Procedures and Tests throughout Hospitalization: Therapy Orders & Screens 06/15/23 14:51 Oxygen Nasal Cannula 2 lpm Comment: Respiratory Therapy Consult ONCE Comment: Reason For Exam: 06/15/23 14:54 EKG REPEAT IN AM Comment: 06/15/23 19:00 Respiratory Therapy Assessment DAILY Comment: Diagnosis: sob/AFIB RVR 06/16/23 09:52 Qualify for Home Oxygen ROUTINE Comment: Diagnosis: sob/AFIB RVR Discharge Exam General Appearance: no apparent distress Neurologic Exam: alert, oriented x 3, cooperative Eye Exam: PERRL Ears, Nose, Throat Exam: normal ENT inspection Neck Exam: normal inspection Respiratory Exam: crackles/rales Cardiovascular Exam: regular rate/rhythm, normal heart sounds Gastrointestinal/Abdomen Exam: soft, normal bowel sounds Pelvic Exam: deferred Rectal Exam: deferred Back Exam: normal inspection Extremity Exam: normal inspection Skin Exam: normal color Final Diagnosis/Problem List - Final Discharge Diagnosis/Problem (1) Atrial fibrillation with rapid ventricular response Current Visit: Yes Status: Resolved Code(s): I48.91 - UNSPECIFIED ATRIAL FIBRILLATION (2) Acute UTI Current Visit: Yes Status: Ruled-out Code(s): N39.0 - URINARY TRACT INFECTION, SITE NOT SPECIFIED (3) Influenza A Current Visit: Yes Status: Acute Code(s): J10.1 - FLU DUE TO OTH IDENT INFLUENZA VIRUS W OTH RESP MANIFEST (4) Diabetes mellitus Current Visit: Yes Status: Chronic Code(s): E11.9 - TYPE 2 DIABETES MELLITUS WITHOUT COMPLICATIONS (5) HTN (hypertension) Current Visit: Yes Status: Chronic Code(s): I10 - ESSENTIAL (PRIMARY) HYPERTENSION - Discharge Disposition: Home, Self-Care Condition: Stable Prescriptions: New Metoprolol Tartrate 25 mg [Lopressor 25MG Tab] 12.5 mg PO BID 30 Days #30 tablet Oseltamivir 75 mg [Tamiflu 75MG Capsule] 75 mg PO BID 4 Days #8 cap Cefpodoxime Proxetil 200 mg [Vantin 200 mg] 200 mg PO BID 7 Days #14 tablet Rivaroxaban 10 mg Tablet [Xarelto 10 mg Tablet] 20 mg PO 1700 30 Days #30 tablet Lisinopril 5 mg [Zestril 5 MG] 2.5 mg PO DAILY 30 Days #30 tablet Azithromycin 250 mg [Zithromax 250 MG TABLET] 250 mg PO DAILY 4 Days #4 tablet Continue Ferrous Sulfate 325 mg [Feosol 325 mg] 325 mg PO BID Insulin Glargine [Lantus Insulin] 70 units SQ HS Cholecalciferol (Vitamin D3) [Vitamin D3] 50 mcg PO UD Liraglutide [Victoza 2-Dajuan] 1.2 mg SQ DAILY Pioglitazone HCl [Actos] 45 mg PO DAILY Gabapentin [Neurontin ] 300 mg PO TID Albuterol Sulfate Mdi [ALBUTEROL/Proair Hfa MDI] 2 puff PO Q4HPRN PRN PRN Reason: Shortness Of Breath Norethindrone Acetate 5 mg PO DAILY Insulin Lispro [Humalog] 0 unit SQ UD Ammonium Lactate [Ammonium Lactate 12%] 1 gm TP BID Benzonatate 200 mg PO TIDPRN PRN PRN Reason: Cough PANTOPRAZOLE 40 mg Tablet [Protonix 40MG Tablet] 40 mg PO DAILY Discontinued lisinopriL [Zestril] 2.5 mg PO DAILY Instructions: Atrial Fibrillation (DC), Flu, Adult (DC) Follow up with: JUAN MANUEL CHINO MD [Primary Care Provider] - 06/29/23 11:00 am Khurram Kenny MD [CONSULTING PHYSICIAN] - 06/27/23 12:45 pm
[2023-06-16 11:48] VITALS: BP 109/76; TEMP 98
[2023-06-16] MEDS: DIFLUCAN PO ONE (11:59)
[2023-06-16 12:04] VITALS: PULSE 81; RESP 23; O2SAT 95
[2023-06-16] MEDS ORDERED: XARELTO 10 MG TABLET PO SCH (17:00)
== END 2023-06-16 12:54 | disposition home or self-care (01) ==
LOC: ED 09:56 → ICU 14:46
PROVIDERS: ADMIT Internal Medicine; ATTEND Internal Medicine
DX: I48.20 Chronic atrial fibrillation, unspecified (principal); N39.0 Urinary tract infection, site not specified; J10.1 Influenza due to other identified influenza virus with other respiratory manifestations; J18.9 Pneumonia, unspecified organism; E11.9 Type 2 diabetes mellitus without complications; I10 Essential (primary) hypertension; E66.01 Morbid (severe) obesity due to excess calories; R00.0 Tachycardia, unspecified; Z79.899 Other long term (current) drug therapy; Z20.828 Contact with and (suspected) exposure to other viral communicable diseases
CPT/HCPCS: 0241U; 36000; 36415; 71045; 71260; 80053; 81001; 82550; 82947; 83036; 83605; 83735; 83880; 84145; 84443; 84484; 84703; 85025; 85379; 87040; 87086; 93005; 93041; 93306; 96365; 96366; 96367; 96374; 96375; 99284; 93268; J0456; J0696; J1650; J2405; Q3014; A9270-GY; G0378

== ENCOUNTER 2024-07-08 22:14 | Emergency (ER) | payer OTHER ==
[2024-07-08 22:30] VITALS: RESP 18; TEMP 97.7; O2SAT 99
--- NOTE | 2024-07-08 22:40 | ERPHSYRPT ---
- History of Present Illness Time Seen by Provider: 07/08/24 22:38 Source: patient Exam Limitations: no limitations Patient Subjective Stated Complaint: "I was fixing my pant leg and I guess I guess I scratched my leg, next thing I know there was a lot of blood". Triage Nursing Assessment: Pt presents to ER with right lower leg injury that occurred just [employer] Physician History: 43-year-old female presents to emergency department for evaluation of bleeding from her leg. Patient states she was adjusting her pant leg and probably scratched her leg had a varicose vein causing it to bleed. Patient arrived via EMS. EMS applied a hemostatic agent and a compression dressing. Bleeding stopped. No active bleeding at this time. Patient currently asymptomatic. Patient otherwise healthy. She voices no other complaints or concerns at this time. Portions of this note were created with voice recognition technology. There may be grammatical, spelling, punctuation or sound alike errors Timing/Duration: today Severity: moderate Modifying Factors: Improves With: nothing Associated Symptoms: denies symptoms Allergies/Adverse Reactions: phenobarbital Allergy (Verified 07/08/24 22:30) Home Medications: Albuterol Sulfate Mdi [ALBUTEROL/Proair Hfa MDI] 2 puff PO Q4HPRN PRN 06/15/23 [History] Ammonium Lactate [Ammonium Lactate 12%] 1 gm TP BID 06/15/23 [History] Cholecalciferol (Vitamin D3) [Vitamin D3] 50 mcg PO UD 06/15/23 [History] Ferrous Sulfate 325 mg [Feosol 325 mg] 325 mg PO BID 06/15/23 [History] Insulin Glargine [Lantus Insulin] 70 units SQ HS 06/15/23 [History] Insulin Lispro [Humalog] 0 unit SQ UD 06/15/23 [History] Pioglitazone HCl [Actos] 45 mg PO DAILY 06/15/23 [History] Hx Tetanus, Diphtheria Vaccination/Date Given: No Hx Influenza Vaccination/Date Given: No Hx Pneumococcal Vaccination/Date Given: No Immunizations Up to Date: No Travel Risk - International Travel Have you traveled outside of the country in past 3 weeks: No - Emerging Infectious Disease Are you exhibiting symptoms associated with any current EIDs: No - Review of Systems Constitutional: No Symptoms, No Fever, No Chills Eyes: No Symptoms Ears, Nose, & Throat: No Symptoms Respiratory: No Symptoms, No Cough, No Dyspnea Cardiac: No Symptoms, No Chest Pain, No Edema, No Syncope Abdominal/Gastrointestinal: No Symptoms, No Abdominal Pain, No Nausea, No Vomiting, No Diarrhea Genitourinary Symptoms: No Symptoms, No Dysuria Musculoskeletal: No Symptoms, No Back Pain, No Neck Pain Skin: No Symptoms, No Rash Neurological: No Symptoms, No Dizziness, No Focal Weakness, No Sensory Changes Psychological: No Symptoms Endocrine: No Symptoms Hematologic/Lymphatic: No Symptoms Immunological/Allergic: No Symptoms All Other Systems: Reviewed and Negative - Past Medical History Pertinent Past Medical History: Yes Neurological History: Seizures ENT History: No Pertinent History Cardiac History: No Pertinent History Respiratory History: No Pertinent History Endocrine Medical History: Diabetes Type II Musculoskeletal History: No Pertinent History GI Medical History: Gallbladder Disease, Hernia History: No Pertinent History Psycho-Social History: No Pertinent History Female Reproductive Disorders: No Pertinent History Other Medical History: Seizures- Stopped at age 6, fx toe - Past Surgical History Past Surgical History: Yes Neuro Surgical History: No Pertinent History Cardiac: No Pertinent History Respiratory: No Pertinent History Gastrointestinal: Cholecystectomy, Hernia Repair Genitourinary: No Pertinent History Musculoskeletal: No Pertinent History Female Surgical History: Section Other Surgical History: 4 c-sections - Female History Hx Last Menstrual Period: 05/27/24 Hx Now: Yes Gestational Age: 7 - Social History Smoking Status: Never smoker Exposure to second hand smoke: No Drug Use: none - Social Determinants of Health Will the patient participate in the screening: Yes Do you worry about a steady place to live?: No Do you have any problems with any of the following?: No known problems In the past 12 months,have you had to go without utilities?: No Transportation Issues: No Has anyone in your support network made you feel unsafe?: No Have you or anyone in your house had to go w/o enough food: No - Nursing Vital Signs Nursing Vital Signs: Initial Vital Signs Temperature 97.7 F 07/08/24 22:16 Pulse Rate 70 07/08/24 22:16 Respiratory Rate 18 07/08/24 22:16 O2 Sat by Pulse Oximetry 99 07/08/24 22:16 Pain Scale Pain Intensity 0 - Physical Exam General Appearance: no apparent distress, alert Eye Exam: PERRL/EOMI, eyes nml inspection Ears, Nose, Throat Exam: normal ENT inspection, moist mucous membranes Neck Exam: normal inspection, full range of motion Respiratory Exam: normal breath sounds, lungs clear, airway intact, No respiratory distress Cardiovascular Exam: regular rate/rhythm, normal peripheral pulses Gastrointestinal/Abdomen Exam: soft, normal bowel sounds, No tenderness, No mass Back Exam: normal inspection, No CVA tenderness, No vertebral tenderness Extremity Exam: normal inspection, normal range of motion, pelvis stable, other (The involved right lower extremities neurovascular tact distally compartments are soft cap refill less than [address] No active bleeding) Neurologic Exam: alert, oriented x 3, cooperative, normal mood/affect, sensation nml, No motor deficits Skin Exam: normal color, warm, dry, No rash Lymphatic Exam: No adenopathy SpO2 Interpretation: normal SpO2: 99 O2 Delivery: Room Air - Course Nursing assessment & vital signs reviewed: Yes Ordered Tests: Active Orders 24 hr Category Date Time Status POCT GLUCOSE Stat Lab 07/08/24 22:23 Completed POCT GLUCOSE Stat Lab 07/08/24 23:27 Completed Lab/Rad Data: Laboratory Results 07/08/24 07/08/24 Range/Units 23:27 22:23 POC Glucometer 106 55 L (74 to 106) mg/dL - Progress Progress: improved Progress Note: 43-year-old female presents to our ED with a bleeding varicose vein. EMS applied a hemostatic agent. Patient observed for approximately 1 hour. Exc ellent hemostasis. There is a forming clot. Dressing applied. Patient to follow-up with her primary care doctor tomorrow for reevaluation. Patient currently has an appointment scheduled. No indication for further workup will discharge home. Patient agrees to follow-up with her primary care Dr. Torres as planned. She voices no other complaints or concerns at this time. Portions of this note were created with voice recognition technology. There may be grammatical, spelling, punctuation or sound alike errors Complexity of problem addressed is moderate acute complicated. No critical care time. Complex of data reviewed and analyzed is none. No specialized testing ordered. Diagnosis made based on history and physical exam. Risk of complication and or risk of morbidity/mortality of patient management is low. Vital stable. Time spent to discharge patient is approximately 10 minutes. Plan of care established for shared decision making. No social determinants of health present to impede follow-up. Portions of this note were created with voice recognition technology. There may be grammatical, spelling, punctuation or sound alike errors 07/09/24 00:00 Counseled pt/family regarding: diagnosis, need for follow-up - Departure Departure Disposition: Home Clinical Impression: Bleeding from varicose vein Condition: Stable Critical Care Time: No Referrals: JUAN MANUEL CHINO MD [Primary Care Provider] - Follow up/PCP as directed Additional Instructions: Discharge/Care Plan NIRAV TRUJILLO was seen on 07/09/24 in the Emergency Room. The patient was counseled regarding Diagnosis,Lab results, Imaging studies, need for follow up and when to return to the Emergency Room. Prescriptions given: Discharge Note I have spoken with the patient and/or caregivers. I have explained the patient's condition, diagnosis and treatment plan based on the information available to me at this time. I have answered the patient's and/or caregiver's questions and addressed any concerns. The patient and/or caregivers have as good understanding of the patient's diagnosis, condition and treatment plan as can be expected at this point. The vital signs have been stable. The patient's condition is stable and appropriate for discharge from the emergency department. The patient will pursue further outpatient evaluation with the primary care physician or other designated or consulting physician as outlined in the discharge instructions. The patient and/or caregivers are agreeable to this plan of care and follow-up instructions have been explained in detail. The patient and/or caregivers have received these instruction. The patient/and or caregivers are aware that any significant change in condition or worsening of symptoms should prompt an immediate return to this or the closest emergency department or call 911. Forms: Work/School Release Form
[2024-07-09 00:06] VITALS: BP 102/51; PULSE 75
== END 2024-07-09 00:50 | disposition home or self-care (01) ==
LOC: ED 22:14
DX: I83.891 Varicose veins of right lower extremity with other complications (principal); E11.9 Type 2 diabetes mellitus without complications; Z79.4 Long term (current) use of insulin; Z79.84 Long term (current) use of oral hypoglycemic drugs; Z79.899 Other long term (current) drug therapy
CPT/HCPCS: 82947; 99283

== ENCOUNTER 2024-12-23 08:21 | Observation (INO) | payer OTHER ==
[2024-12-23 09:02] LABS: Glucose, Urine >=1000 mg/dL (Negative); Protein,Urine Dip Negative (Negative); WBC 51-100 /HPF (0-5)
[2024-12-23 09:04] LABS: Amphetamine,Urine NEGATIVE (NEGATIVE); Barbiturate,Urine NEGATIVE (NEGATIVE); Benzodiazepine,Urine NEGATIVE (NEGATIVE); Cocaine,Urine NEGATIVE (NEGATIVE); Methadone,Urine NEGATIVE (NEGATIVE); Opiate,Urine NEGATIVE (NEGATIVE); PCP,Urine NEGATIVE (NEGATIVE); THC,Urine NEGATIVE (NEGATIVE)
[2024-12-23 09:28] VITALS: BP 139/77; PULSE 78; RESP 20; TEMP 98.2; O2SAT 98
--- NOTE | 2025-01-02 10:47 | SSS ---
SHORT STAY SUMMARY ADMISSION DIAGNOSES: 1) Thirty weeks' estimated gestational age . 2) Pain in upper back and bilateral rib area. DISCHARGE DIAGNOSES: 1) Thirty weeks' estimated gestational age . 2) Pain in upper back and bilateral rib area. HISTORY OF PRESENT ILLNESS: This patient is a 44-year-old, 8, para 6, with no local OB provider, being seen in [place], who presented to the obstetric department to be cleared before being offered an emergency room visit on date of admission. She complained of pain in her bilateral rib area and upper back. She reported good movement. No vaginal bleeding. No contractions or other complaints. So, she was brought to Labor and Delivery, and I was called. Her vital signs showed temperature of 98.2, pulse rate was 78, respiratory rate was 20, blood pressure was 139/77, and pulse oximetry was 98% on room air. Nursing assessment revealed clear lungs; nontender, gravid abdomen; and nontender, chest wall in area of complaints. She was placed on the external monitor and was found to have a reactive nonstress test with reassuring wellbeing. No contractions were present, and baseline heart rate was 155 beats per minute with reactive nonstress test with accelerations and no decelerations. After assessment showed OB reassurance and no obstetrical complications related to her current , it was felt as though at that time she could be discharged from the OB Department and offered emergency room visit for evaluation of her complaints or follow up with her primary OB provider in [place].
== END 2024-12-23 09:30 | disposition home or self-care (01) ==
LOC: OB 08:21
PROVIDERS: ADMIT Family Medicine; ATTEND Family Medicine
DX: Z34.83 Encounter for supervision of other normal pregnancy, third trimester (principal); Z3A.30 30 weeks gestation of pregnancy
CPT/HCPCS: 80307; 81001; 87086; G0378; G0379